=== PATIENT | male | born 1965 | race Two or more races ===

== ENCOUNTER 2017-09-18 13:32 | Inpatient (IN) | payer MEDICAID ==
[~2017-09-18] VITALS: Ht 172.7 cm; Wt 74.7 kg
[2017-09-18 14:04] LABS: Basophils # (auto) 0.1 uL; Basophils % (auto) 0.7 % (0.0-2.0); Eosinophils # (auto) 0.2 uL; Eosinophils % (auto) 1.2 % (0.0-7.0); Hemoglobin 14.4 g/dL (13.5-17.5); Lymphocytes # (auto) 2.6 uL; Lymphocytes % (auto) 12.7 % (10.0-50.0); Mean Corpuscular Hemoglobin 28.3 pg (28.0-32.0); Mean Corpuscular Hgb Conc. 33.6 g/dL (32.0-36.0); Mean Corpuscular Volume 84.2 fL (80.0-100.0); Monocytes # (auto) 1.1 uL; Monocytes % (auto) 5.7 % (0.0-12.0); Neutrophils # (auto) 16.2 uL; Neutrophils % (auto) 79.7 % (37.0-80.0); Platelet Count (auto) 349 10^3/uL (140-450); Red Blood Cells 5.11 10^6/uL (4.5-5.90); Red Cell Distribution Width 13.4 % (11.8-14.3); White Blood Cell 20.3 10^3/uL (4.4-10.8)
[2017-09-18 14:29] LABS: Alanine Aminotransferase 41 U/L (16-61); Albumin 3.1 g/dL (3.4-5.0); Alkaline Phosphatase 78 U/L (45-117); Anion Gap 7 (5-15); Aspartate Aminotransferase 26 U/L (15-37); BUN/Creatinine Ratio 29.7; Bilirubin, Total 0.1 mg/dL (0.2-1.0); Blood Urea Nitrogen 19 mg/dL (7-18); Calcium 8.7 mg/dL (8.5-10.1); Carbon Dioxide 27 mmol/L (21-32); Chloride 104 mmol/L (98-107); GFR African American 168 mL/min; GFR Non-African American 139 mL/min; Glucose 116 mg/dL (74-106); Magnesium 2.5 mg/dL (1.6-2.6); Potassium 3.7 mmol/L (3.5-5.1); Sodium 138 mmol/L (136-145); Total Protein 7.6 g/dL (6.4-8.2)
[2017-09-18] MEDS ORDERED: KETOROLAC TROMETH 30 MG/ML 1ML VIAL IV ONE (19:00)
[2017-09-18] MEDS ORDERED: cefTRIAXone 1GM/10ml IVPUSH 10 ML IV ONE (19:00)
[2017-09-18] MEDS ORDERED: NICOTINE 14 MG/24HR TOPICAL PATCH TD ONE (19:45)
[2017-09-18] MEDS ORDERED: ACETAMINOPHEN 325 MG TAB PO PRN (20:00)
[2017-09-18] MEDS ORDERED: DOCUSATE SOD 100 MG CAP PO PRN (20:00)
[2017-09-18] MEDS ORDERED: ONDANSETRON HCL 4 MG/2 ML VIAL IV PRN (20:00)
[2017-09-18] MEDS ORDERED: TEMAZEPAM 15 MG CAP PO PRN (20:00)
[2017-09-18] MEDS ORDERED: HYDROcodone-ACET 5/325MG TAB PO PRN (20:00)
[2017-09-18] MEDS ORDERED: cloNIDine HCL 0.1 MG TAB PO PRN (20:15)
[2017-09-18 20:25] VITALS: BP 137/91
[2017-09-18 21:30] VITALS: BP 147/103
[2017-09-18] MEDS: SODIUM CHLOR 0.9% PF (SALINE LOCK) 10ML VIAL/SYR IV SCH (22:52)
[2017-09-18] MEDS ORDERED: CEPH500C PO (23:44)
[2017-09-19] MEDS: ALBUTEROL SULF 2.5 MG/0.5ML(0.5%) NEB SOLN NEB SCH ×3 (00:13→11:06)
[2017-09-19] MEDS: IPRATROPIUM BROM 0.5 MG/2.5ML INH SOL NEB SCH ×3 (00:13→11:06)
[2017-09-19] MEDS: MORPHINE SULFATE 8mg/ml INJ SDV IV PRN ×2 (03:39→10:14)
[2017-09-19 04:58] VITALS: BP 150/63
[2017-09-19 05:24] LABS: Urine Bacteria NONE SEEN /hpf (None Seen); Urine Blood 1+ /uL (Negative); Urine Mucus FEW (None Seen); Urine Specific Gravity 1.021 (1.001-1.035); Urine WBC 1 /hpf (0 - 3)
[2017-09-19 05:45] LABS: Alcohol, Urine < 3.0 mg/dL (0-5); Amphetamine Screen, Urine NEGATIVE (NEGATIVE); Barbiturate Scree,Urine NEGATIVE (NEGATIVE); Benzodiazephine Screen, Urine NEGATIVE (NEGATIVE); Cannabinoid Screen, Urine NEGATIVE (NEGATIVE); Cocaine Screen, Urine NEGATIVE (NEGATIVE); Opiate Scree,Urine POSITIVE (NEGATIVE); Phencyclidine Screen, Urine NEGATIVE (NEGATIVE)
[2017-09-19] MEDS: SODIUM CHLOR 0.9% PF (SALINE LOCK) 10ML VIAL/SYR IV SCH (06:45)
[2017-09-19 06:49] LABS: Basophils # (auto) 0 uL; Basophils % (auto) 0.2 % (0.0-2.0); Eosinophils # (auto) 0.2 uL; Eosinophils % (auto) 1.2 % (0.0-7.0); Hematocrit 41.2 % (41.0-53.0); Hemoglobin 14.1 g/dL (13.5-17.5); Lymphocytes # (auto) 2.9 uL; Mean Corpuscular Hgb Conc. 34.3 g/dL (32.0-36.0); Mean Corpuscular Volume 84.4 fL (80.0-100.0); Monocytes # (auto) 1.3 uL; Monocytes % (auto) 7.6 % (0.0-12.0); Neutrophils # (auto) 12.7 uL; Nucleated Red Blood Cells % 0.1 %; Platelet Count (auto) 319 10^3/uL (140-450); Red Blood Cells 4.88 10^6/uL (4.5-5.90); Red Cell Distribution Width 13.7 % (11.8-14.3); White Blood Cell 17.2 10^3/uL (4.4-10.8)
[2017-09-19 07:07] LABS: Albumin 2.9 g/dL (3.4-5.0); Bilirubin, Total 0.3 mg/dL (0.2-1.0); Calcium 8.2 mg/dL (8.5-10.1); Potassium 3.7 mmol/L (3.5-5.1); Total Protein 7.1 g/dL (6.4-8.2)
[2017-09-19 08:00] VITALS: BP 126/100
[2017-09-19 08:59] VITALS: BP 126/100
[2017-09-19] MEDS ORDERED: NICOTINE 14 MG/24HR TOPICAL PATCH TD SCH (10:00)
[2017-09-19] MEDS ORDERED: MULTIPLE VITAMIN TAB PO SCH (10:00)
[2017-09-19] MEDS: BOOST PLUS 8 ounce PO SCH ×2 (10:41→12:00)
[2017-09-19] MEDS ORDERED: LEVO500T21 PO ×2 (10:41)
[2017-09-19] MEDS ORDERED: LEVOFLOXACIN 500 MG TAB PO ONE (11:00)
[2017-09-19 11:58] VITALS: BP 135/93
[2017-09-19 13:25] VITALS: BP 135/93
[2017-09-19] MEDS ORDERED: cefTRIAXone 1GM/10ml IVPUSH 10 ML IV SCH (22:00)
== END 2017-09-19 12:40 | disposition home or self-care (01) | DRG 140 ==
LOC: EDBD 13:32 → ER 13:32 → TELE 13:33 → CENTRAL 20:57
PROVIDERS: ADMIT Internal Medicine; ATTEND Internal Medicine
DX: J44.0 Chronic obstructive pulmonary disease with (acute) lower respiratory infection (principal); E44.0 Moderate protein-calorie malnutrition; J45.901 Unspecified asthma with (acute) exacerbation; E88.09 Other disorders of plasma-protein metabolism, not elsewhere classified; J44.1 Chronic obstructive pulmonary disease with (acute) exacerbation; I10 Essential (primary) hypertension; F17.210 Nicotine dependence, cigarettes, uncomplicated; J20.9 Acute bronchitis, unspecified; R07.81 Pleurodynia; Z68.25 Body mass index [BMI] 25.0-25.9, adult; Z71.6 Tobacco abuse counseling
CPT/HCPCS: 36415; 71046; 80053; 80307; 81001; 83735; 84484; 85025; 87070; 87077; 87186; 87205; 93005; 94640; 94761; 96374; 96375; J1885; J2270

== ENCOUNTER 2017-09-20 00:54 | Emergency (ER) | payer MEDICAID ==
[~2017-09-20] VITALS: Ht 175.3 cm; Wt 74.8 kg
[~2017-09-20 00:54] MED LIST: CEPH500C PO; LEVO500T21 PO
[2017-09-20 01:15] VITALS: BP 140/89
[2017-09-20 01:44] LABS: Basophils # (auto) 0.1 uL; Basophils % (auto) 0.5 % (0.0-2.0); Eosinophils # (auto) 0.1 uL; Eosinophils % (auto) 0.4 % (0.0-7.0); Hematocrit 43.7 % (41.0-53.0); Hemoglobin 14.6 g/dL (13.5-17.5); Lymphocytes # (auto) 2.7 uL; Lymphocytes % (auto) 12.7 % (10.0-50.0); Mean Corpuscular Hemoglobin 28.4 pg (28.0-32.0); Mean Corpuscular Hgb Conc. 33.4 g/dL (32.0-36.0); Mean Corpuscular Volume 85.1 fL (80.0-100.0); Monocytes # (auto) 1.7 uL; Monocytes % (auto) 8.3 % (0.0-12.0); Neutrophils # (auto) 16.3 uL; Neutrophils % (auto) 78.1 % (37.0-80.0); Platelet Count (auto) 358 10^3/uL (140-450); Red Blood Cells 5.14 10^6/uL (4.5-5.90); Red Cell Distribution Width 13.3 % (11.8-14.3); White Blood Cell 20.9 10^3/uL (4.4-10.8)
[2017-09-20 02:03] LABS: Albumin 3.3 g/dL (3.4-5.0); Anion Gap 6 (5-15); Aspartate Aminotransferase 29 U/L (15-37); BUN/Creatinine Ratio 27.7; Blood Urea Nitrogen 23 mg/dL (7-18); Calcium 8.9 mg/dL (8.5-10.1); Carbon Dioxide 29 mmol/L (21-32); Chloride 101 mmol/L (98-107); GFR African American 125 mL/min; GFR Non-African American 103 mL/min; Glucose 113 mg/dL (74-106); Potassium 4.2 mmol/L (3.5-5.1); Sodium 136 mmol/L (136-145)
[2017-09-20 02:10] LABS: Alanine Aminotransferase 37 U/L (16-61); Alkaline Phosphatase 63 U/L (45-117); Bilirubin, Total 0.5 mg/dL (0.2-1.0); Total Protein 8.2 g/dL (6.4-8.2)
== END 2017-09-20 05:51 | disposition left against medical advice (07) ==
LOC: EDBD 00:54 → ER 00:54
DX: R06.02 Shortness of breath (principal); Z53.21 Procedure and treatment not carried out due to patient leaving prior to being seen by health care provider
CPT/HCPCS: 36415; 71045; 80053; 84484; 85025

== ENCOUNTER → 2019-02-28 | Outpatient (CLI) | payer MEDICAID ==
[~2019-02-28] VITALS: Ht 172.7 cm; Wt 75.7 kg
[~2019-02-28] MED LIST changes: +ADENOSINE 64 MG in GIVE UN-DILUTED 0 ML IV ONE; +ADENOSINE 90 MG/30 ML INJ IV ONE; +ALBUTEROL SULF 2.5 MG/0.5ML(0.5%) NEB SOLN ONE; -CEPH500C PO
== END | disposition home or self-care (01) ==
LOC: Rad HDHVI 07:57
PROVIDERS: ATTEND Internal Medicine
DX: R07.9 Chest pain, unspecified (principal); J44.9 Chronic obstructive pulmonary disease, unspecified; E44.0 Moderate protein-calorie malnutrition; I10 Essential (primary) hypertension; J45.909 Unspecified asthma, uncomplicated; Z87.891 Personal history of nicotine dependence
CPT/HCPCS: 78452; 93005; 94640; 96374; 96375; A9500; J0153; J7611

== ENCOUNTER → 2019-03-08 | Outpatient (CLI) | payer MEDICAID ==
[~2019-03-08] MED LIST changes: -ADENOSINE 64 MG in GIVE UN-DILUTED 0 ML IV ONE; -ADENOSINE 90 MG/30 ML INJ IV ONE; -ALBUTEROL SULF 2.5 MG/0.5ML(0.5%) NEB SOLN ONE
== END | disposition home or self-care (01) ==
LOC: Rad HDHVI 11:06
PROVIDERS: ATTEND Internal Medicine
DX: J44.9 Chronic obstructive pulmonary disease, unspecified (principal); I10 Essential (primary) hypertension
CPT/HCPCS: 93306

== ENCOUNTER → 2021-07-11 | Outpatient (CLI) | payer MEDICAID ==
[~2021-07-11] MED LIST changes: +ALBUTEROL SULF 2.5 MG/0.5ML(0.5%) NEB SOLN ONE; -LEVO500T21 PO; +LEVO500T31 PO
== END | disposition home or self-care (01) ==
LOC: RT 08:26
PROVIDERS: ATTEND Internal Medicine Pulmonary Disease
DX: J44.9 Chronic obstructive pulmonary disease, unspecified (principal)
CPT/HCPCS: 36415; 94060; 94618; 94727; 94729

== ENCOUNTER → 2021-12-31 | Outpatient (CLI) | payer MEDICAID ==
[~2021-12-31] MED LIST changes: -ALBUTEROL SULF 2.5 MG/0.5ML(0.5%) NEB SOLN ONE
== END | disposition home or self-care (01) ==
LOC: Rad HDHVI 13:51
PROVIDERS: ATTEND Internal Medicine
DX: I07.1 Rheumatic tricuspid insufficiency (principal); R06.02 Shortness of breath; R07.89 Other chest pain; I10 Essential (primary) hypertension
CPT/HCPCS: 93306

== ENCOUNTER → 2022-02-24 | Outpatient (CLI) | payer MEDICAID ==
[~2022-02-24] VITALS: Ht 172.7 cm; Wt 73.5 kg
[~2022-02-24] MED LIST changes: +ADENOSINE 62 MG in GIVE UN-DILUTED 0 ML IV ONE; +ADENOSINE 90 MG/30 ML INJ IV ONE
== END | disposition home or self-care (01) ==
LOC: Rad HDHVI 13:49
PROVIDERS: ATTEND Internal Medicine
DX: R07.89 Other chest pain (principal); I10 Essential (primary) hypertension; R06.02 Shortness of breath; J44.9 Chronic obstructive pulmonary disease, unspecified; F17.211 Nicotine dependence, cigarettes, in remission; Z82.49 Family history of ischemic heart disease and other diseases of the circulatory system
CPT/HCPCS: 78452; 93005; 96374; 96375; A9500; J0153

== ENCOUNTER 2025-03-05 15:26 | Inpatient (IN) | payer MEDICAID ==
[~2025-03-05] VITALS: Ht 170.2 cm; Wt 74.1 kg
[2025-03-05] MEDS: ENOXAPARIN SOD 80 MG/0.8ML SYRINGE SC SCH (10:46)
[~2025-03-05 15:26] MED LIST changes: -ADENOSINE 62 MG in GIVE UN-DILUTED 0 ML IV ONE; -ADENOSINE 90 MG/30 ML INJ IV ONE
--- NOTE | 2025-03-05 15:42 | ED.PDOC ---
SOB-HPI HPI Comments 59 year old male with PMHx COPD presents to the ED With a chief complaint of shortness of breath Per EMS, patient was recently discharged from [facility], was admitted for Pneumonia. Patient states he noticed shortness of breath has worsened, is worse with exertion. He was 70% on RA, was placed on O2, given breathing treatments in r oute to ED. Denies fever, chills, nausea, vomiting, diarrhea, chest pain, headache, dizziness. No other symptoms or modifying factors present at this time. Chief Complaint: Shortness of Breath Time Seen by MD: 15:30 Primary Care Provider: TOREY Reviewed notes: Medications, Allergies Information Source: Patient, Emergency Med Personnel Mode of Arrival: EMS Severity: Moderate Timing: Hours Duration: Since onset Context: At Rest PE Risk Factors: None History of: COPD Prehospital treatment: Breathing Tx Modifying Factors: Nothing Past Medical History PAST MEDICAL HISTORY: COPD Surgical History: Denies all surgeries Family History Family History: Unknown Social History Smoker: Cigarettes, Greater Than 1 Pack/Day Alcohol: Occasionally Drugs: Denies Drug Use Lives In: Home Constitutional: denies: chills, diaphoresis, fatigue, fever, malaise, sweats, weakness, others EENTM: denies: blurred vision, double vision, ear bleeding, ear discharge, ear drainage, ear pain, ear ringing, eye pain, eye redness, hearing loss, mouth pain, mouth swelling, nasal discharge, nose bleeding, nose congestion, nose pain, photophobia, tearing, throat pain, throat swelling, voice changes, others Respiratory: reports: shortness of breath; denies: cough, hemoptysis, orthopnea, SOB at rest, SOB with excertion, stridor, wheezing, others Cardiovascular: denies: chest pain, dizzy spells, diaphoresis, Dyspnea on exertion, edema, irregular heart beat, left arm pain, lightheadedness, palpitations, PND, syncope, others Gastrointestinal: denies: abdomen distended, abdominal pain, blood streaked bowels, constipated, diarrhea, dysphagia, difficulty swallowing, hematemesis, melena, nausea, poor appetite, poor fluid intake, rectal bleeding, rectal pain, vomiting, others Genitourinary: denies: burning, dysuria, flank pain, frequency, hematuria, incontinence, penile discharge, penile sore, pain, testicle pain, testicle sw elling, urgency, others Neurological: denies: dizziness, fainting, headache, left sided numbness, left sided weakness, numbness, paresthesia, pre-existing deficit, right sided numbness, right sided weakness, seizure, speech problems, tingling, tremors, weakness, others Musculoskeletal: denies: back pain, gout, joint pain, joint swelling, muscle pain, muscle stiffness, neck pain, others Integumetry: denies: bruises, change in color, change in hair/nails, dryness, laceration, lesions, lumps, rash, wounds, others Allergic/Immunocompromised: denies: Difficulty Healing, Frequent Infections, Hives, Itching, others Hematologic/Lymphatic: denies: anemia, blood clots, easy bleeding, easy bruising, swollen glands, others Endocrine: denies: excessive hunger, excessive sweating, excessive thirst, excessive urination, flushing, intolerance to cold, intolerance to heat, unexplained weight gain, unexplained weight loss, others Psychiatric: denies: anxiety, bipolar disorder, depression, hopeless, panic disorder, schizophrenia, sleepless, suicidal, others All Other Systems: Reviewed and Negative Physical Exam General Appearance: No Apparent Distress, Normal HEENT: Normal ENT Inspection, Pharynx Normal, TMs Normal Neck: Full Range of Motion, Non-Tender, Normal, Normal Inspection Respiratory: Wheezing, Other (Tachypnea) Cardiovascular: No Edema, No JVD, No Murmur, No Gallop, Normal Peripheral Pulses, Regular Rate/Rhythm Breast Exam: Deferred Gastrointestinal: No Organomegaly, Non Tender, No Pulsatile Mass, Normal Bowel Sounds, Soft Genitalia: Deferred Pelvic: Deferred Rectal: Deferred Extremities: No calf tenderness, Normal capillary refill, Normal inspection, Normal range of motion, Non-tender, No pedal edema Musculoskeletal : Apperance: Normal Neurologic: Alert, gaming director II-XII nml as Tested, No Motor Deficits, Normal Affect, Normal Mood, No Sensory Deficits Cerebellar Function: Normal Reflexes: Normal Skin: Dry, Normal Color, Warm Lymphatic: No Adenopathy Was a procedure done? Was a procedure done?: No Differential Dx Differential Diagnosis: Bronchitis, COPD, Pneumonia, URI X-Ray, Labs, Meds, VS Vital Signs Date Time Temp Pulse Resp B/P (MAP) Pulse Ox O2 Delivery O2 Flow Rate FiO2 03/05/25 18:17 98.0 104 18 120/80 (93) 96 98.0 03/05/25 16:02 100 03/05/25 15:39 96 Nasal Cannula* 4 36 03/05/25 15:34 98.0 105 18 130/84 96 98.0 Lab Test 03/05/25 16:20 Range/Units White Blood Count 10.3 4.4-10.8 10^3/uL Red Blood Count 5.53 4.5-5.90 10^6/uL Hemoglobin 16.2 13.5-17.5 g/dL Hematocrit 48.2 41.0-53.0 % Mean Corpuscular Volume 87.1 80.0-100.0 fL Mean Corpuscular Hemoglobin 29.4 28.0-32.0 pg Mean Corpuscular Hemoglobin Concent 33.7 32.0-36.0 g/dL Red Cell Distribution Width 13.1 11.8-14.3 % Platelet Count 218 140-450 10^3/uL Mean Platelet Volume 7.3 6.9-10.8 fL Neutrophils (%) (Auto) 66.2 37.0-80.0 % Lymphocytes (%) (Auto) 22.8 10.0-50.0 % Monocytes (%) (Auto) 8.6 0.0-12.0 % Eosinophils (%) (Auto) 2.2 0.0-7.0 % Basophils (%) (Auto) 0.2 0.0-2.0 % Neutrophils # (Auto) 6.8 1.6-8.6 10 ^3/uL Lymphocytes # (Auto) 2.4 0.4-5.4 10 ^3/uL Monocytes # (Auto) 0.9 0-1.3 10 ^3/uL Eosinophils # (Auto) 0.2 0-0.8 10 ^3/uL Basophils # (Auto) 0 0-0.2 10 ^3/uL Nucleated Red Blood Cells 0.1 % Sodium Level Pending Potassium Level Pending Chloride Level Pending Carbon Dioxide Level Pending Anion Gap Pending Blood Urea Nitrogen Pending Creatinine Pending Glomerular Filtration Rate Calc Pending BUN/Creatinine Ratio Pending Serum Glucose Pending Lactic Acid Level Pending Calcium Level Pending Troponin I High Sensitivity Pending Time of 1ST Reevaluation: 16:00 Reevaluation 1ST: Unchanged Patient Education/Counseling: Diagnosis, Treatment, Need For Follow Up Family Education/Counseling: No Family Present SEPSIS Sepsis Screen Physician Orders Electrocardigram (03/05/25 15:40) Basic Metabolic Panel (03/05/25 16:07) Troponin-I Hs (03/05/25 16:07) Urinalysis (03/05/25 16:07) Chest Portable (03/05/25 16:07) Lactic Acid W/ Reflex Order (03/05/25 16:07) Blood Culture (03/05/25 16:07) Troponin-I Hs (03/05/25 17:07) Troponin-I Hs (03/05/25 19:07) Vital Signs Date Time Temp Pulse Resp B/P (MAP) Pulse Ox O2 Delivery O2 Flow Rate FiO2 03/05/25 18:17 98.0 104 18 120/80 (93) 96 98.0 03/05/25 16:02 100 03/05/25 15:39 96 Nasal Cannula* 4 36 03/05/25 15:34 98.0 105 18 130/84 96 98.0 Laboratory Tests Test 03/05/25 16:20 Lactic Acid Level Pending White Blood Count 10.3 10^3/uL (4.4-10.8) Departure 1 Departure Time of Disposition: 18:20 (Patient presented with acute shortness of breath concerning for acute on chronic COPD Exacerbation, Pneumonia, ACS, CHF, Pneumothorax. Less likely PE, Dissection. Data: 1. I ordered and reviewed the result of at least 3 labs including a CBC, BMP, and Troponin. 2. I independently interpreted the following tests: Chest X-ray shows .Risk:This patient has a high risk of morbidity due to further diagnostic testing or treatment and may suffer from respiratory or cardiac etiology . Workup reveals a likely COPD Exacerbation and patient should be admitted for further workup. and possible expert consultation.) Impression: Primary Impression: Acute on chronic hypoxic respiratory failure Additional Impression: Shortness of breath Disposition: ADMITTED INPATIENT Admit to: Tele Condition: Guarded Critical Care Note Critical Care Time?: Yes Critical care comment: Acute respiratory distress Authorized and Performed by: Candelario Banegas MD Total critical care time: Approximately 37 minutes Due to a high probability of clinically significant, life threatening deterioration, the patient required my highest level of preparedness to intervene emergently and I personally spent this critical care time directly and personally managing the patient. This critical care time included obtaining a history; examining the patient; pulse oximetry; ordering and review of studies; arranging urgent treatment with development of a management plan; evaluation of patient's response to treatment; frequent reassessment; and, discussions with other providers. This critical care time was performed to assess and manage the high probability of imminent, life-threatening deterioration that could result in multi-organ failure. It was exclusive of separately billable procedures and treating other patients and teaching time. Please see my other sections and the rest of the note for further information on patient assessment and treatment. Stability Stability form required: No Heart Score Heart Score: Heart Score Response (Comments) Value History N/A 0 EKG N/A 0 Age N/A 0 Risk Factors N/A 0 Troponin N/A 0 Total 0 I personally scribed for CANDELARIO BANEGAS MD ([email or web address]) on 03/05/25 at 15:42. Electronically submitted by Chiquita Hernández ([email or web address]). CANDELARIO BANEGAS MD Mar 05, 2025 15:42
--- NOTE | 2025-03-05 16:42 | DVH ---
CLINICAL HISTORY: ams TECHNIQUE: Single view of the chest was obtained. COMPARISON: None FINDINGS: The heart size and pulmonary vasculature are normal. The lungs are clear. IMPRESSION: NO ACUTE CARDIOPULMONARY PROCESS.
[2025-03-05 17:17] LABS: Hematocrit 48.2 % (41.0-53.0); Hemoglobin 16.2 g/dL (13.5-17.5); Mean Corpuscular Hemoglobin 29.4 pg (28.0-32.0); Mean Corpuscular Volume 87.1 fL (80.0-100.0); Nucleated Red Blood Cells % 0.1 %
[2025-03-05 17:24] LABS: Chloride 99 mmol/L (98-107); Sodium 139 mmol/L (136-145)
[2025-03-05 17:25] LABS: Anion Gap 11 (5-15); Calcium 9.1 mg/dL (8.7-10.4); Carbon Dioxide 29 mmol/L (20-31)
[2025-03-05 17:30] LABS: BUN/Creatinine Ratio 18.1 (10.0-20.0); Blood Urea Nitrogen 15 mg/dL (9-23)
[2025-03-05 18:22] LABS: Glucose 125 mg/dL (74-106); Potassium 3.3 mmol/L (3.5-5.1)
[2025-03-05] MEDS: IPRATROPIUM BROM 0.5 MG/2.5ML INH SOL NEB ONE (18:37)
[2025-03-05] MEDS: ALBUTEROL SULF 2.5 MG/0.5ML(0.5%) NEB SOLN NEB ONE (18:37)
[2025-03-05] MEDS ORDERED: DOCUSATE SOD 100 MG CAP PO PRN (19:15)
[2025-03-05] MEDS ORDERED: NITROGLYCERIN 0.4 MG SL TAB SL PRN (19:15)
[2025-03-05] MEDS ORDERED: ONDANSETRON HCL 4 MG/2 ML VIAL IV PRN (19:15)
--- NOTE | 2025-03-05 19:35 | DVHHPRES ---
History of Present Illness Resident Creating Document: AMADO TOURE RESIDENT History of Present Illness Mr. Castellano, a 59-year-old male with a history of HTN, DMII, HLD, COPD, 2L NC RTC, Generalized Anxiety disorder, nicotine abuse, Insomnia Insomnia BPH, BPH, chronic back pain, osteoarthritis presented to the emergency department with moderate shortness of breath that had worsened over several hours, particularly with exertion. He was recently discharged from [facility] following treatment for pneumonia. Upon EMS arrival, he was found to have an oxygen saturation of 70% on room air and was administered oxygen and breathing treatments en route to the hospital. The patient has associated symptoms such as fever, chills, exertional substernal chest pain radiating to left arm and neck, nausea, or dizziness. He arrived via EMS and was evaluated at 15:30. He is a heavy smoker, occasionally consumes alcohol, denies drug use and surgical history, and lives at home with son. His primary care provider is Dr. Millan. PMHx: HTN, DMII, HLD, COPD, 2L NC RTC, Generalized Anxiety disorder, nicotine abuse, Insomnia Insomnia BPH, BPH, chronic back pain, osteoarthritis. PSHx: Lumbar spinal surgery. Family history: non contributory. Social History: 40+ smoking history, active, occasional alcohol, lifetime denies use of rec drugs, lives at home with son. Review of Systems Constitutional: Yes: Chills, Sweats, Malaise; No: Fever, Weakness, Other Eyes: No: Pain, Vision change, Conjunctivae inflammation, Eyelid inflammation, Other, Redness ENT: No: Ear pain, Ear discharge, Nose pain, Nose discharge, Nose congestion, Mouth pain, Mouth swelling, Throat pain, Throat swelling, Other Respiratory: Cough, Dry, Shortness of breath, SOB with excertion, Sputum; No: Wheezing, Hemoptysis, Pleuritic Pain, Wheezing, Other Cardiovascular: Chest Pain; No: Palpitations, Orthopnea, Paroxysmal Noc. Dyspne a, Edema, Lt Headedness, Other Gastrointestinal: Nausea; No: Vomiting, Abdominal Pain, Diarrhea, Constipation, Melena, Hematochezia, Other Genitourinary: No Dysuria, No Frequency, No Incontinence, No Hematuria; Retention; No Other Musculoskeletal: neck pain, back pain, leg pain, foot pain; No: other, shoulder pain, arm pain, hand pain Skin: No: Rash, Lesions, Jaundice, Bruising, Other Neurological: Numbness (sciatica left LS area, chronic); No: Weakness, Incoordination, Change in speech, Confusion, Seizures, Other Allergies: Coded Allergies: NO KNOWN ALLERGIES (Unverified , 09/20/17) Medications Current Medications Medications Dose Ordered Sig/Rochelle Route Start Time Stop Time Status Last Admin Dose Admin Ondansetron HCl 4 mg Q4HP PRN IV 03/05/25 19:15 UNV Docusate Sodium 100 mg BIDPRN PRN PO 03/05/25 19:15 UNV Morphine Sulfate 2 mg Q4HPRN PRN IV 03/05/25 19:15 UNV Nitroglycerin 0.4 mg Q5MINP PRN SL 03/05/25 19:15 UNV Morphine Sulfate 2 mg Q30M PRN IV 03/05/25 19:15 UNV Enoxaparin Sodium 80 mg Q12HR SC 03/05/25 19:30 UNV Potassium Chloride 100 ml @ 50 mls/hr Q2H IV 03/05/25 19:45 03/05/25 23:44 UNV Exam Vital Signs Vital Signs Date Time Temp Pulse Resp B/P (MAP) Pulse Ox O2 Delivery O2 Flow Rate FiO2 03/05/25 18:17 98.0 104 18 120/80 (93) 96 98.0 03/05/25 15:39 Nasal Cannula* 4 36 General Appearance: Alert, Oriented X3, Cooperative, mild distress HEENT: Atraumatic, PERRLA, EOMI, Other (dry mucosa, neck pain left sternocleidomastoid area. likely muskuloskeletal. ) Respiratory: Clear to auscultation, Other (4 L NC, prolonged expiratory phase. ) Cardiovascular: Regular rate, Normal S1, Normal S2, No murmurs, Other (sinus tachycardia) Abdominal: Normal bowel sounds, Soft, No hepatospenomegaly, No masses, Other (epigastric tenderness. surgical scar in the back lumbar area. ) Extremities: No clubbing, No cyanosis, No edema, Normal pulses, No tenderness/swelling Skin: No rashes, No breakdown, No significant lesion Neuro: Normal gait, Normal speech, Strength at 5/5 X4 ext, Normal tone, Sensation intact, Other (walks slowly to catch breath) Psych/Mental Status: Mental status NL, Other (anxious, fine tremors. ) Labs/Xrays Labs Test 03/05/25 18:25 03/05/25 16:20 Range/Units Troponin I High Sensitivity 1026 *H </=54 ng/L White Blood Count 10.3 4.4-10.8 10^3/uL Red Blood Count 5.53 4.5-5.90 10^6/uL Hemoglobin 16.2 13.5-17.5 g/dL Hematocrit 48.2 41.0-53.0 % Mean Corpuscular Volume 87.1 80.0-100.0 fL Mean Corpuscular Hemoglobin 29.4 28.0-32.0 pg Mean Corpuscular Hemoglobin Concent 33.7 32.0-36.0 g/dL Red Cell Distribution Width 13.1 11.8-14.3 % Platelet Count 218 140-450 10^3/uL Mean Platelet Volume 7.3 6.9-10.8 fL Neutrophils (%) (Auto) 66.2 37.0-80.0 % Lymphocytes (%) (Auto) 22.8 10.0-50.0 % Monocytes (%) (Auto) 8.6 0.0-12.0 % Eosinophils (%) (Auto) 2.2 0.0-7.0 % Basophils (%) (Auto) 0.2 0.0-2.0 % Neutrophils # (Auto) 6.8 1.6-8.6 10 ^3/uL Lymphocytes # (Auto) 2.4 0.4-5.4 10 ^3/uL Monocytes # (Auto) 0.9 0-1.3 10 ^3/uL Eosinophils # (Auto) 0.2 0-0.8 10 ^3/uL Basophils # (Auto) 0 0-0.2 10 ^3/uL Nucleated Red Blood Cells 0.1 % Sodium Level 139 136-145 mmol/L Potassium Level 3.3 L 3.5-5.1 mmol/L Chloride Level 99 98-107 mmol/L Carbon Dioxide Level 29 20-31 mmol/L Anion Gap 11 5-15 Blood Urea Nitrogen 15 9-23 mg/dL Creatinine 0.83 0.700-1.30 mg/dL Glomerular Filtration Rate Calc 100 >90 mL/min BUN/Creatinine Ratio 18.1 10.0-20.0 Serum Glucose 125 H 74-106 mg/dL Lactic Acid Level 1.1 0.4-2.0 mmol/L Calcium Level 9.1 8.7-10.4 mg/dL SEPSIS Sepsis Screen Date sepsis recognized/suspect: Mar 05, 2025 Time Sepsis recognized/suspect: 1536 Recent Procedure: No On Antibiotic Therapy: No Respiratory Rate >20: No Heart Rate >90: Yes Temp<36 C (96.8 F) or >38.3 C: No SBP <90 or MAP <65 mmHG: No New Acute Mental Status Change: No Is the patient on CPAP, BIPAP,: No Physician Orders Electrocardigram (03/05/25 15:40) Urinalysis (03/05/25 16:07) Chest Portable (03/05/25 16:07) Blood Culture (03/05/25 16:07) Troponin-I Hs (03/05/25 19:07) Admit (03/05/25:02) Allergies (03/05/25:) Code Status (03/05/25:) Oxygen Per Hour (03/05/25:02) Ondansetron Hcl (Zofran) (03/05/25 19:15) Docusate Sodium Capsule (Colace Capsule) (03/05/25 19:15) Fall Risk Precautions In Place QSHIFT (03/05/25:02) Complete Blood Count (03/06/25 04:00) Comprehensive Metabolic Panel (03/06/25 04:00) Npo (Nothing By Mouth) Diet (03/06/25 Breakfast) Pt Request For Service (03/05/25:) Echo 2d Mode Cardiac Dop (03/05/25:02) Condition: Critical (03/05/25:02) Morphine Sulfate Injection (03/05/25 19:15) Nitroglycerin Sublingual (Ntrostat Subli (03/05/25:15) Morphine Sulfate Injection (03/05/25:15) Oxygen By Nasal Cannula (03/05/25:02) Stat Ekg For Chest Pain (03/05/25:02) Notify Of Changes From Base (03/05/25:02) Canal Boat Captain For 24 Hours (03/05/25:02) Emergency Dysrhythmia Protocol (03/05/25 19:02) Rhythm Strips Once Every Shift (03/05/25 19:02) Aspirin Tablet (03/05/25 19:15) Atorvastatin (Lipitor) (03/05/25 19:15) *Consult Dr.Mukeshchandra Edmonds (03/05/25 19:20) Echo 2d Mode Cardiac Dop (03/05/25:26) Enoxaparin Sodium (Lovenox) (03/05/25:30) Bilat Lower Dvt (03/05/25:) D-Dimer (03/05/25:) Stat Ekg For Chest Pain (03/05/25:30) Potassium Chl 20meq/100ml (03/05/25 19:45) Respiratory Culture W/ Gs (03/05/25:31) Covid19 Antigen Heydi (03/05/25 ) Rapid Influenza A&B (03/05/25:31) Levalbuterol Hcl (Xopenex Medneb) (03/05/25 19:45) Ipratropium Medneb (Atrovent Medneb) (03/05/25 19:45) Methylprednisolone Sod Succ (Solu Medrol (03/05/25 22:00) Nicotine 7mg/24hr (Nicoderm 7mg/24hr) (03/06/25 10:00) Nicotine 7mg/24hr (Nicoderm 7mg/24hr) (03/05/25 19:45) Prothrombin Time W/ Inr (03/05/25:31) Urinalysis (03/05/25:) Thyroid Stimulating Hormone (03/05/25:31) Vital Signs Date Time Temp Pulse Resp B/P (MAP) Pulse Ox O2 Delivery O2 Flow Rate FiO2 03/05/25 18:17 98.0 104 18 120/80 (93) 96 98.0 03/05/25 16:02 100 03/05/25 15:39 96 Nasal Cannula* 4 36 03/05/25 15:34 98.0 105 18 130/84 96 98.0 Laboratory Tests Test 03/05/25 16:20 Lactic Acid Level 1.1 mmol/L (0.4-2.0) White Blood Count 10.3 10^3/uL (4.4-10.8) Medications Medications Dose Ordered Sig/Rochelle Route Start Time Stop Time Status Last Admin Dose Admin Albuterol 5 mg ONCE ONCE NEB 03/05/25 18:30 03/05/25 18:31 DC 03/05/25 18:37 5 MG Ipratropium Lucas 0.5 mg ONCE ONCE NEB 03/05/25 18:30 03/05/25 18:31 DC 03/05/25 18:37 0.5 MG Assessment/Plan Assessment/Plan #NSTEMI likely type 1: Typical chest pain, troponin 971, 1026, still trending, chest pain, heart score 8 point high score, might need catheterization in this hospitalization, Cardiology consult done, echo, repeat EKG as needed, several risk factors include dyslipidemia, type 2 diabetes mellitus, active smoking. #COPD exacerbation: prolonged history of nicotine abuse, At baseline patient on Trelegy Ellipta with recent hospitalization caused trigger for exacerbation, still not back to baseline , increased cough, shortness of breath and loss of function. Immunized to COVID and influenza, sputum culture, previously MSSA positive. MRSA check, right now patient on levofloxacin, we will continue doxycycline and ceftriaxone for now. #recent Community-acquired pneumonia, Gram-positive / g negatives atypical: Was admitted to hospital status post IV antibiotics now on oral levofloxacin, we will continue with IV ceftriaxone and doxycycline for now. Check for MRSA. #Exertional chest pain: Typical chest pain with substernal, radiation to the left arm neck and face, high-risk of cardiac chest pain. Reproducible, so differentials also include musculoskeletal causes. #Known GERD/PUD: As per patient follows with GI (likely Dr. Pro), at home omeprazole and sucralfate, restarting with IV pantoprazole and sucralfate. #Sinus tachycardia: Could be multifactorial, anxiety, COPD, secondary to medication inhalers, although possibility of PE not totally excluded, D-dimer and DVT bilateral lower leg U/S to check. Keeping the patient on telemetry. #Acute on chronic hypoxic respiratory failure: Baseline as per patient at home has concentrated 2 L baseline oxygen, patient has a limitations to movement, feel short of breath, we will recently patient is needing more oxygen since admission/ discharge from [facility] #mild hypokalemia, 3.3 at presentation: IV replenishment, follow up tomorrow. check for Mg, correct electrolytes. #Active nicotine abuse: 40+ pack-year smoking history, patient is still on cigarettes, 4-5 cigarettes at least per day as per patient. Smoking cessation counseling done bedside for 11 minutes, started the patient on nicotine patch for withdrawals. Previously been tried behavioral and medical quit smoking interventions. #known type 2 diabetes mellitus: At home 500 mg daily metformin check for HbA1c, target 140-180 mg/dl. HbA1C 7-8 #generalized anxiety disorder: Sertraline 50 mg tab daily, continue. #Chronic back pain: cyclobenzaprine hydrochloride 10 mg tab daily, we will continue. PT eval before safe discharge. #Benign Prostatic Hyperplasia: still has symptoms. On tamsulosin 0.4 we will continue , previously bananas finasteride 5 mg daily #Insomnia: Trazodone 100 mg at bedtime for sleep #iron-deficiency anemia, chronic: On ferrous sulfate 325, H&H stable, we will hold in-hospital, can restart outpatient dixon. #essential hypertension: Lopressor 50 mg b.i.d., and hydroxychloroquine Dyazide 25 mg b.i.d. target blood pressure 130/80 as per ACC guidelines. PUD prophylaxis: protonix 40mg DVT prophylaxis: Levonox On therapeutic dose Barriers to discharge: Medical diagnosis and management in progress. Patient lives with son. Independent for ADL with walker/ DME. PT and SW consult as needed. PCP: Dr. Shannon Specialist Relevant To Admission: Given elevated troponin, typical chest pain. Dr. Troy consulted. discussed the case over phone with cardiology team. Ten tative cardiac intervention , Wednesday a.m.. Case discussed with Dr. Dickey. Code Status: Full Code. Discussion needed total 33 minutes bedside. Plan discussed with: Patient My Orders Orders - AMADO TOURE RESIDENT Procedure Category Date Status Time Admit ADMIT 03/05/25 Transmitted 19:02 Allergies ASHA 03/05/25 In Process 19:02 Code Status CODE 03/05/25 Transmitted 19:02 Oxygen Per Hour RT 03/05/25 Transmitted 19:02 Ondansetron Hcl PHA 03/05/25 Logged (Zofran) 19:15 Docusate Sodium PHA 03/05/25 Logged Capsule (Colace 19:15 Fall Risk Precautions ASHA 03/05/[address] 19:02 Complete Blood Count LAB 03/06/25 Verified 04:00 Comprehensive LAB 03/06/25 Verified Metabolic Panel 04:00 Npo (Nothing By DIET 03/06/25 Transmitted Mouth) Diet Breakfast Pt Request For Service PT 03/05/25 Logged 19:02 Echo 2d Mode Cardiac US 03/05/25 Logged DOP 19:02 Condition: Critical [facility] 03/05/25 In Process 19:02 Morphine Sulfate PHA 03/05/25 Logged Injection 19:15 Nitroglycerin PHA 03/05/25 Logged Sublingual (Ntrostat 19:15 Morphine Sulfate PHA 03/05/25 Logged Injection 19:15 Oxygen By Nasal RT 03/05/25 Transmitted Cannula 19:02 Stat Ekg For Chest ASHA 03/05/25 In Process Pain 19:02 Notify Of Changes [facility] 03/05/25 In Process From Base 19:02 Canal Boat Captain For [facility] 03/05/25 In Process 24 Hours 19:02 Emergency Dysrhythmia [facility] 03/05/25 In Process Protocol 19:02 Rhythm Strips Once [facility] 03/05/25 In Process Every Shift 19:02 Aspirin Tablet PHA 03/05/25 Logged 19:15 Atorvastatin (Lipitor) PHA 03/05/25 Logged 19:15 Echo 2d Mode Cardiac US 03/05/25 Logged DOP 19:26 Enoxaparin Sodium PHA 03/05/25 Logged (Lovenox) 19:30 Bilat Lower Dvt US 03/05/25 Logged 19:26 D-Dimer LAB 03/05/25 In Process 19:26 Stat Ekg For Chest [facility] 03/05/25 In Process Pain 19:30 Potassium Chl PHA 03/05/25 Logged 20meq/100ml 19:45 Respiratory Culture GABRIEL 03/05/25 Verified W/ Gs 19:31 Covid19 Antigen Heydi LAB 03/05/25 Verified Rapid Influenza A&B LAB 03/05/25 Verified 19:31 Levalbuterol Hcl PHA 03/05/25 Verified (Xopenex Medneb) 19:45 Ipratropium Medneb PHA 03/05/25 Verified (Atrovent Medneb) 19:45 Methylprednisolone PHA 03/05/25 Verified Sod Succ (Solu Medrol 22:00 Nicotine 7mg/24hr PHA 03/06/25 Verified (Nicoderm 7mg/24hr) 10:00 Nicotine 7mg/24hr PHA 03/05/25 Verified (Nicoderm 7mg/24hr) 19:45 Prothrombin Time W/ LAB 03/05/25 Verified INR 19:31 Urinalysis LAB 03/05/25 Verified 19:31 Thyroid Stimulating LAB 03/05/25 Verified Hormone 19:31 Date of Service: Mar 05, 2025 Billing Provider: LORE DICKEY MD Common Visit Codes: [id number] INP/OBS CARE (HIGH) Secondary Visit Codes: [id number] CARE PLAN 30 MINUTES AMADO TOURE RESIDENT Mar 05, 2025 19:35
[2025-03-05] MEDS: methylPREDNISolone SOD SUCC 125 MG/2 ML VL IV ONE (20:29)
[2025-03-05] MEDS: AZITHROMYCIN 250 MG TAB PO ONE (20:29)
[2025-03-05 20:30] VITALS: RESP 21; O2SAT 92
[2025-03-05 20:36] LABS: INR 1.0 (0.9-1.15); Prothrombin Time 10.6 sec (9.3-11.8)
[2025-03-05 20:37] LABS: Alanine Aminotransferase 29 U/L (7-40); Albumin 4.3 g/dL (3.2-4.8); Alkaline Phosphatase 67 U/L (46-116); Bilirubin, Direct < 0.1 mg/dL (<0.3); Bilirubin, Total 0.3 mg/dL (0.2-1.0); Total Protein 6.9 g/dL (5.7-8.2)
[2025-03-05 20:38] LABS: COVID19 ANTIGEN SOFIA FIA NEGATIVE (NEGATIVE)
[2025-03-05] MEDS ORDERED: MORPHINE SULFATE 4 MG/ML SYR/VIAL IV PRN ×2 (20:45)
[2025-03-05 20:49] LABS: Urine Protein, UAD TRACE (Negative)
[2025-03-05] MEDS: NICOTINE 7MG/24HR TOPICAL PATCH TD ONE (20:59)
[2025-03-05] MEDS: ATORVASTATIN 20 MG TAB PO ONE (21:00)
[2025-03-05 21:01] VITALS: BP 123/90; PULSE 91; PULSE 92; RESP 19; TEMP 98; O2SAT 92
[2025-03-05] MEDS: POTASSIUM CHL 20MEQ/100ML 100 ML IV SCH (21:45)
--- NOTE | 2025-03-05 22:13 | DVH ---
BILATERAL LOWER EXTREMITY VENOUS DUPLEX REASON FOR EXAMINATION: tachycardia with hypoxic respiratory failure. COMPARISON: None TECHNIQUE: Using real-time freeze-frame technique with a high-frequency transducer, multiple longitudinal and transverse sections were obtained. Simultaneous color flow and spectral Doppler imaging was performed. The deep veins from the popliteal fossa to the groin were evaluated. FINDINGS: There is good visualization of the deep venous system with no intraluminal filling defects identified. Normal venous compressibility is seen and there is flow augmentation. Color flow Doppler imaging is unremarkable. IMPRESSION: NO EVIDENCE OF DEEP VENOUS THROMBOSIS.
[2025-03-05 22:31] VITALS: BP 123/90; PULSE 88; RESP 18; TEMP 98; O2SAT 92
[2025-03-05] MEDS: PANTOPRAZOLE 40 MG/10 ML VIAL INJ IV ONE (22:42)
[2025-03-05] MEDS: CYCLOBENZAPRINE HCL 10 MG TAB PO SCH (22:45)
[2025-03-05] MEDS: SUCRALFATE 1 GM/10 ML ORAL SUSP GT SCH (22:46)
[2025-03-05] MEDS: methylPREDNISolone SOD SUCC 40 MG/ML VL IV SCH (22:51)
[2025-03-05] MEDS: DOXYCYCLINE 100MG/100ML 100 ML IV SCH (23:00)
[2025-03-06] VITALS (11 sets, daily range): BP systolic 107–122; BP diastolic 74–86; PULSE 84–114; RESP 17–19; TEMP 97.7–98.1; O2SAT 91–100
--- NOTE | 2025-03-06 00:14 | DVHINCON2 ---
Date of service: Mar 05, 2025 Referring Physician Keli Reason for Consultation NSTEMI History of Present Illness This is a 59 year old male with a PMH of COPD who presents to the ED by EMS with a complaint of shortness of breath. The patient was recently discharged from [facility], was admitted for Pneumonia. Patient states he noticed shortness of breath has worsened, is worse with exertion. He was 70% on RA, was placed on O2, given breathing treatments in route to ED. CBC is unremarkable. Troponin 971 > 1026 > 942. Chest x-ray shows NAD. BLE Venous Duplex is negative for DVT. EKG shows tachycardia. Patient was admitted to the hospital. I am asked to consult on this patient. Family History: Asthma G8 MOTHER Allergies: Coded Allergies: NO KNOWN ALLERGIES (Unverified , 09/20/17) Home Meds Active Scripts Levofloxacin (Levaquin) 500 Mg Tab, 500 MG PO DAILY for 7 Days Prov:JEANIE POLLARD MD 09/19/17 Current Medications Current Medications Medications (Trade) Dose Ordered Sig/Rochelle Route PRN Reason Start Time Stop Time Status Last Admin Ondansetron HCl (Zofran) 4 mg Q4HP PRN IV NAUSEA / VOMITING 03/05/25 19:15 Docusate Sodium (Colace Capsule) 100 mg BIDPRN PRN PO FOR CONSTIPATION 03/05/25 19:15 Morphine Sulfate 2 mg Q4HPRN PRN IV SEVERE PAIN (7-10 PAIN SCALE) 03/05/25 20:45 Nitroglycerin (Ntrostat Sublingual) 0.4 mg Q5MINP PRN SL FOR CHEST PAIN 03/05/25 19:15 Morphine Sulfate 2 mg Q30M PRN IV FOR CHEST PAIN 03/05/25 20:45 Enoxaparin Sodium (Lovenox) 80 mg Q12HR SC 03/05/25 21:25 03/05/25 10:46 Potassium Chloride 100 ml @ 50 mls/hr Q2H IV 03/05/25 19:45 03/05/25 23:44 DC Levalbuterol HCl (Xopenex Medneb) 0.625 mg Q6HPRN PRN NEB SHORTNESS OF BREATH 03/05/25 19:45 Ipratropium [place] (Atrovent Medneb) 0.5 mg Q6HPRN PRN NEB SHORTNESS OF BREATH 03/05/25 19:45 Methylprednisolone Sodium Succinate (Solu Medrol) 40 mg BID IV 03/05/25 22:00 03/05/25 22:51 Nicotine (Nicoderm 7MG/ 24HR) 1 patch DAILY TD 03/06/25 10:00 Pantoprazole Sodium (Protonix) 40 mg DAILY IV 03/06/25 10:00 Sucralfate (Carafate Susp) 1 gm BID@0600,2200 GT 03/05/25 22:00 03/05/25 22:46 Ceftriaxone Sodium 50 ml @ 100 mls/hr DAILY@09 IV 03/06/25 09:00 Doxycycline Hyclate 100 ml @ 50 mls/hr Q12H IV 03/05/25 19:45 Atorvastatin Calcium (Lipitor) 40 mg HS PO 03/06/25 22:00 Aspirin 81 mg DAILY PO 03/06/25 10:00 Trazodone HCl (Desyrel) 100 mg HS PO 03/05/25 22:00 03/05/25 22:44 Tamsulosin HCl (Flomax) 0.4 mg QPM PO 03/06/25 18:00 Cyclobenzaprine HCl (Flexeril Tablet) 5 mg TID PO 03/05/25 22:00 03/05/25 22:45 Sertraline HCl (Zoloft) 50 mg DAILY PO 03/06/25 10:00 Review of Systems Constitutional: Yes: Chills, Sweats, Malaise; No: Fever, Weakness, Other Eyes: No: Pain, Vision change, Conjunctivae inflammation, Eyelid inflammation, Other, Redness ENT: No: Ear pain, Ear discharge, Nose pain, Nose discharge, Nose congestion, Mouth pain, Mouth swelling, Throat pain, Throat swelling, Other Respiratory: Cough, Dry, Shortness of breath, SOB with excertion, Sputum; No: Wheezing, Hemoptysis, Pleuritic Pain, Wheezing, Other Cardiovascular: Chest Pain; No: Palpitations, Orthopnea, Paroxysmal Noc. Dyspnea, Edema, Lt Headedness, Other Gastrointestinal: Nausea; No: Vomiting, Abdominal Pain, Diarrhea, Constipation, Melena, Hematochezia, Other Genitourinary: No Dysuria, No Frequency, No Incontinence, No Hematuria; Retention; No Other Musculoskeletal: neck pain, back pain, leg pain, foot pain; No: other, shoulder pain, arm pain, hand pain Skin: No: Rash, Lesions, Jaundice, Bruising, Other Neurological: Numbness (sciatica left LS area, chronic); No: Weakness, Incoordination, Change in speech, Confusion, Seizures, Other Allergies: Vital Signs Vital Signs Date Time Temp Pulse Resp B/P (MAP) Pulse Ox O2 Delivery O2 Flow Rate FiO2 03/05/25 22:31 98.0 88 18 123/90 92 2.0 98.0 03/05/25 20:30 Nasal Cannula* 28 Physical Exam GENERAL: Alert and oriented x 3. No acute distress. EYES: PERRL, EOMI. Anicteric. HENT: Moist mucous membranes. LUNGS: Decreased breath sounds. CARDIOVASCULAR: Regular rate and rhythm. ABDOMEN: Soft, epigastric tenderness. EXTREMITIES: No edema. NEUROLOGIC: No focal neurological deficits. SKIN: Warm, dry. Labs/Diagnostic Data Labs Test 03/05/25 20:20 03/05/25 20:11 03/05/25 20:04 03/05/25 18:25 Range/Units Urine Color Yellow Yellow Urine Clarity Clear Clear Urine pH 6.5 5.0-9.0 Urine Specific [place] 1.025 1.001-1.035 Urine Protein Trace H Negative Urine Ketones Negative Negative Urine Blood Negative Negative /uL Urine Nitrite Negative Negative Urine Bilirubin Negative Negative Urine Urobilinogen Normal Negative mg/dL Urine Leukocyte Esterase Negative Negative /uL Urine RBC 3 0 - 3 /hpf Urine Microscopic WBC < 1 0-3 /HPF Urine Squamous Epithelial Cells Few <5 /hpf Urine Bacteria Few H None Seen /hpf Urine Glucose Normal Normal mg/dL Troponin I High Sensitivity 942 *H </=54 ng/L Influenza Type A Antigen Negative Negative Influenza Type B Antigen Negative Negative SARS-CoV-2 Antigen (Rapid) Negative NEGATIVE Total Bilirubin 0.3 0.2-1.0 mg/dL Direct Bilirubin < 0.1 <0.3 mg/dL Aspartate Amino Transferase (AST) 26 13-40 U/L Alanine Aminotransferase (ALT) 29 7-40 U/L Alkaline Phosphatase 67 46-116 U/L Total Protein 6.9 5.7-8.2 g/dL Albumin 4.3 3.2-4.8 g/dL Thyroid Stimulating Hormone (TSH) 1.34 0.55-4.78 uIU/mL Test 03/05/25 16:20 Range/Units White Blood Count 10.3 4.4-10.8 10^3/uL Red Blood Count 5.53 4.5-5.90 10^6/uL Hemoglobin 16.2 13.5-17.5 g/dL Hematocrit 48.2 41.0-53.0 % Mean Corpuscular Volume 87.1 80.0-100.0 fL Mean Corpuscular Hemoglobin 29.4 28.0-32.0 pg Mean Corpuscular Hemoglobin Concent 33.7 32.0-36.0 g/dL Red Cell Distribution Width 13.1 11.8-14.3 % Platelet Count 218 140-450 10^3/uL Mean Platelet Volume 7.3 6.9-10.8 fL Neutrophils (%) (Auto) 66.2 37.0-80.0 % Lymphocytes (%) (Auto) 22.8 10.0-50.0 % Monocytes (%) (Auto) 8.6 0.0-12.0 % Eosinophils (%) (Auto) 2.2 0.0-7.0 % Basophils (%) (Auto) 0.2 0.0-2.0 % Neutrophils # (Auto) 6.8 1.6-8.6 10 ^3/uL Lymphocytes # (Auto) 2.4 0.4-5.4 10 ^3/uL Monocytes # (Auto) 0.9 0-1.3 10 ^3/uL Eosinophils # (Auto) 0.2 0-0.8 10 ^3/uL Basophils # (Auto) 0 0-0.2 10 ^3/uL Nucleated Red Blood Cells 0.1 % Prothrombin Time 10.6 9.3-11.8 sec Prothrombin Time INR 1.00 0.9-1.15 D-Dimer, Quantitative 0.27 0.0-0.49 mg/L FEU Sodium Level 139 136-145 mmol/L Potassium Level 3.3 L 3.5-5.1 mmol/L Chloride Level 99 98-107 mmol/L Carbon Dioxide Level 29 20-31 mmol/L Anion Gap 11 5-15 Blood Urea Nitrogen 15 9-23 mg/dL Creatinine 0.83 0.700-1.30 mg/dL Glomerular Filtration Rate Calc 100 >90 mL/min BUN/Creatinine Ratio 18.1 10.0-20.0 Serum Glucose 125 H 74-106 mg/dL Hemoglobin A1c 5.8 H <5.7 % A1C Lactic Acid Level 1.1 0.4-2.0 mmol/L Calcium Level 9.1 8.7-10.4 mg/dL Assessment NSTEMI. COPD exacerbation. Recent Community-acquired pneumonia. Exertional chest pain. Sinus tachycardia. Acute on chronic hypoxic respiratory failure. Hypokalemia. Active nicotine abuse. Type 2 diabetes mellitus. Generalized anxiety disorder. Chronic back pain.3 Benign Prostatic Hyperplasia. Insomnia. Iron-deficiency anemia, chronic. Essential hypertension. Plan/Recommendation I agree with your ongoing assessment and care of plan. Echocardiogram. Aspirin, Lipitor. IV antibiotics as ordered. DVT and GI prophylactics. Morphine for pain management. Additional plan as per the hospital course. A total of 45 minutes was spent reviewing the patient record, examining the patient, making a diagnostic and therapeutic plan, discussing this plan with medical personnel, following up on diagnostic studies and following the patient for clinical stability excluding any and all procedures. At least 50% of this time was spent in direct, [id number] contact. Plan discussed with: Patient TAYLER DE PAZ MD Mar 06, 2025 00:14
[2025-03-06] MEDS ORDERED: ASPI-543 PO (06:11)
[2025-03-06] MEDS ORDERED: LEVO750T40 PO (06:18)
[2025-03-06] MEDS ORDERED: SUCR1TAB PO (06:18)
[2025-03-06] MEDS ORDERED: FLUT1AER17 IN (06:18)
[2025-03-06] MEDS ORDERED: METH-1182 PO (06:18)
[2025-03-06] MEDS ORDERED: PANT40TA2 PO (06:18)
[2025-03-06] MEDS ORDERED: FERR325T20 PO (06:18)
[2025-03-06] MEDS ORDERED: ATOR-507 PO (06:18)
[2025-03-06] MEDS ORDERED: CHOL20007 PO (06:18)
--- NOTE | 2025-03-06 06:31 | ECG ---
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
[2025-03-06 08:27] LABS: Hematocrit 46.3 % (41.0-53.0); Hemoglobin 15.5 g/dL (13.5-17.5); Mean Corpuscular Hemoglobin 29.4 pg (28.0-32.0); Mean Corpuscular Volume 87.5 fL (80.0-100.0); Nucleated Red Blood Cells % 0.0 %
[2025-03-06 08:54] LABS: Alanine Aminotransferase 22 U/L (7-40); Alkaline Phosphatase 48 U/L (46-116); Anion Gap 8 (5-15); Calcium 8.9 mg/dL (8.7-10.4); Carbon Dioxide 29 mmol/L (20-31); Chloride 105 mmol/L (98-107); Potassium 4.2 mmol/L (3.5-5.1); Sodium 142 mmol/L (136-145)
[2025-03-06 08:55] LABS: BUN/Creatinine Ratio 27.6 (10.0-20.0); Blood Urea Nitrogen 21 mg/dL (9-23)
[2025-03-06 08:56] LABS: Total Protein 6.5 g/dL (5.7-8.2)
[2025-03-06 08:57] LABS: Albumin 3.9 g/dL (3.2-4.8)
[2025-03-06 08:58] LABS: Bilirubin, Total 0.4 mg/dL (0.2-1.0); Glucose 139 mg/dL (74-106)
[2025-03-06 09:31] LABS: Triglycerides 70 mg/dL (< 150)
[2025-03-06 09:32] LABS: HDL Cholesterol 43 mg/dL (40-59)
[2025-03-06 09:33] LABS: Cholesterol 165 mg/dL (< 200)
--- NOTE | 2025-03-06 10:25 | DVH ---
INDICATION: neck pain, muskuloskeletal COMPARISON: None TECHNIQUE: 4 views of the cervical spine were obtained. FINDINGS: Mild anterolisthesis of C2 on C3 and C3 on C4. Straightening of the cervical spine. The predental space is normal. Severe multilevel degenerative disc disease of the cervical spine No acute fracture, vertebral compression deformity or aggressive osseous lesions. The imaged lung apices are unremarkable. IMPRESSION: No acute fracture. Severe multilevel degenerative disc disease of the cervical spine
[2025-03-06] MEDS: PANTOPRAZOLE 40 MG/10 ML VIAL INJ IV SCH (11:53)
[2025-03-06] MEDS: SERTRALINE HCL 50 MG TAB PO SCH (11:53)
[2025-03-06] MEDS: ENOXAPARIN SOD 80 MG/0.8ML SYRINGE SC SCH (11:54)
[2025-03-06] MEDS: NICOTINE 7MG/24HR TOPICAL PATCH TD SCH (11:57)
--- NOTE | 2025-03-06 12:10 | DVHPN2 ---
Reviewed: Care Plan, H&P, Labs, Medications, Previous Orders, Radiology Changes from previous H/P or p: No Changes Eyes: No Pain, No Vision change, No Conjunctivae inflammation, No Eyelid inflammation, No Other, No Redness ENT: No Ear pain, No Ear discharge, No Nose pain, No Nose discharge, No Nose congestion, No Mouth pain, No Mouth swelling, No Throat pain, No Throat swelling, No Other Cardiovascular: Chest Pain; No Palpitations, No Orthopnea, No Paroxysmal Noc. Dyspnea, No Edema, No Lt Headedness, No Other Respiratory: Cough, Dry, Shortness of breath, SOB with excertion; No Wheezing, No Hemoptysis, No Pleuritic Pain; Sputum; No Other Gastrointestinal: Nausea; No Vomiting, No Abdominal Pain, No Diarrhea, No Constipation, No Melena, No Hematochezia, No Other Genitourinary: No Dysuria, No Frequency, No Incontinence, No Hematuria; R etention; No Other Musculoskeletal: No other; neck pain; No shoulder pain, No arm pain; back pain; No hand pain; leg pain, foot pain Skin: No Rash, No Lesions, No Jaundice, No Bruising, No Other Objective Vitals Vital Signs Date Time Temp Pulse Resp B/P (MAP) Pulse Ox O2 Delivery O2 Flow Rate FiO2 03/06/25 09:00 97.7 84 18 110/77 (88) 93 97.7 03/05/25 22:31 2.0 03/05/25 21:01 Nasal Cannula* 28 Intake/Output Intake and Output 03/06/25 07:00 Intake Total 100 ml Balance 100 ml Intake Oral 0 ml IV Total 100 ml # Voids 2 Medications Current Medications Medications Dose Ordered Sig/Rochelle Route Start Time Stop Time Status Last Admin Dose Admin Ondansetron HCl 4 mg Q4HP PRN IV 03/05/25 19:15 Docusate Sodium 100 mg BIDPRN PRN PO 03/05/25 19:15 Morphine Sulfate 2 mg Q4HPRN PRN IV 03/05/25 20:45 Nitroglycerin 0.4 mg Q5MINP PRN SL 03/05/25 19:15 Morphine Sulfate 2 mg Q30M PRN IV 03/05/25 20:45 Levalbuterol HCl 0.625 mg Q6HPRN PRN NEB 03/05/25 19:45 Ipratropium [place] 0.5 mg Q6HPRN PRN NEB 03/05/25 19:45 Methylprednisolone Sodium Succinate 40 mg BID IV 03/05/25 22:00 03/06/25 11:53 40 MG Nicotine 1 patch DAILY TD 03/06/25 10:00 03/06/25 11:57 1 PATCH Pantoprazole Sodium 40 mg DAILY IV 03/06/25 10:00 03/06/25 11:53 40 MG Sucralfate 1 gm BID@0600,2200 GT 03/05/25 22:00 03/05/25 22:46 1 GM Ceftriaxone Sodium 50 ml @ 100 mls/hr DAILY@09 IV 03/06/25 09:00 03/06/25 11:52 100 MLS/HR Doxycycline Hyclate 100 ml @ 50 mls/hr Q12H IV 03/05/25 19:45 03/06/25 08:36 50 MLS/HR Atorvastatin Calcium 40 mg HS PO 03/06/25 22:00 Aspirin 81 mg DAILY PO 03/06/25 10:00 03/06/25 11:54 81 MG Trazodone HCl 100 mg HS PO 03/05/25 22:00 03/05/25 22:44 100 MG Tamsulosin HCl 0.4 mg QPM PO 03/06/25 18:00 Cyclobenzaprine HCl 5 mg TID PO 03/05/25 22:00 03/05/25 22:45 5 MG Sertraline HCl 50 mg DAILY PO 03/06/25 10:00 03/06/25 11:53 50 MG Enoxaparin Sodium 70 mg Q12HR SC 03/06/25 10:00 03/06/25 11:54 70 MG Laboratory Results Laboratory Tests 03/06/25 08:14 Chemistry Test 03/05/25 16:20 03/05/25 18:25 03/06/25 08:14 Calcium Level 9.1 mg/dL (8.7-10.4) 8.9 mg/dL (8.7-10.4) Albumin 4.3 g/dL (3.2-4.8) 3.9 g/dL (3.2-4.8) Total Protein 6.9 g/dL (5.7-8.2) 6.5 g/dL (5.7-8.2) Coagulation Test 03/05/25 16:20 Prothrombin Time 10.6 sec (9.3-11.8) Prothrombin Time INR 1.00 (0.9-1.15) D-Dimer, Quantitative 0.27 mg/L FEU (0.0-0.49) Lipid panel Test 03/06/25 08:14 Cholesterol Level 165 mg/dL (< 200) HDL Cholesterol 43 mg/dL (40-59) Triglycerides Level 70 mg/dL (< 150) LFT Test 03/05/25 18:25 03/06/25 08:14 Alanine Aminotransferase (ALT) 29 U/L (7-40) 22 U/L (7-40) Alkaline Phosphatase 67 U/L (46-116) 48 U/L (46-116) Aspartate Amino Transferase (AST) 26 U/L (13-40) 22 U/L (13-40) Direct Bilirubin < 0.1 mg/dL (<0.3) Total Bilirubin 0.3 mg/dL (0.2-1.0) 0.4 mg/dL (0.2-1.0) HgA1c, TSH Test 03/05/25 16:20 03/05/25 18:25 Hemoglobin A1c 5.8 % A1C (<5.7) H Thyroid Stimulating Hormone (TSH) 1.34 uIU/mL (0.55-4.78) Urinalysis Test 03/05/25 20:20 Urine Color Yellow (Yellow) Urine Clarity Clear (Clear) Urine pH 6.5 (5.0-9.0) Urine Specific [place] 1.025 (1.001-1.035) Urine Protein Trace (Negative) H Urine Ketones Negative (Negative) Urine Blood Negative /uL (Negative) Urine Nitrite Negative (Negative) Urine Bilirubin Negative (Negative) Urine Urobilinogen Normal mg/dL (Negative) Urine Leukocyte Esterase Negative /uL (Negative) Urine RBC 3 /hpf (0 - 3) Urine Microscopic WBC < 1 /HPF (0-3) Urine Squamous Epithelial Cells Few /hpf (<5) Urine Bacteria Few /hpf (None Seen) H Urine Glucose Normal mg/dL (Normal) Labs and/or images reviewed: Labs reviewed by me, Image(s) reviewed by me Assessment/Plan Assessment/Plan Non ST-elevation [place] troponin 1016: Treatment per ACS protocol cardiology consult for Dr. Troy Acute COPD exacerbation Recent community-acquired pneumonia treated with the IV antibiotics at [facility] and now on p.o. levofloxacin, we will put him on doxycycline and iv Rocephin Exertional chest pain Sinus tachycardia Acute on chronic hypoxic respiratory failure Chronic current smoker: Counseling Type 2 diabetes Generalized anxiety disorder BPH Chronic back pain Insomnia Iron-deficiency anemia Hypertension Time spent 70 minutes Advanced care planning time 20 minutes Patient is full code code Plan discussed with: Patient My Orders Orders - DEX GRIFFITH MD Procedure Category Date Status Time *Consult CONS 03/06/[address]Mukeshchandra Edmonds 12:03 Date of Service: Mar 06, 2025 Billing Provider: DEX GRIFFITH MD Common Visit Codes: [id number] CARE 30-74 MIN DEX GRIFFITH MD Mar 06, 2025 12:10
--- NOTE | 2025-03-06 13:39 | DVHPN2 ---
Progress Note Date Seen: Mar 06, 2025 Resident Creating Document: DONOVAN PULIDO RESIDENT Medical Necessity Reason Pt with a Central, PICC or Fol: No Subjective Review of Systems Mr. Castellano, a 59-year-old male with a history of HTN, DMII, HLD, COPD, 2L NC RTC, Generalized Anxiety disorder, nicotine abuse, Insomnia Insomnia BPH, BPH, chronic back pain, osteoarthritis presented to the emergency department with moderate shortness of breath that had worsened over several hours, particularly with exertion. He was recently discharged from [facility] following treatment for pneumonia. Upon EMS arrival, he was found to have an oxygen saturation of 70% on room air and was administered oxygen and breathing treatments en route to the hospital. The patient has associated symptoms such as fever, chills, exertional substernal chest pain radiating to left arm and neck, nausea, or dizziness. He arrived via EMS and was evaluated at 15:30. He is a heavy smoker, occasionally consumes alcohol, denies drug use and surgical history, and lives at home with son. His primary care provider is Dr. Millan. PMHx: HTN, DMII, HLD, COPD, 2L NC RTC, Generalized Anxiety disorder, nicotine abuse, Insomnia Insomnia BPH, BPH, chronic back pain, osteoarthritis. PSHx: Lumbar spinal surgery. Family history: non contributory. Social History: 40+ smoking history, active, occasional alcohol, lifetime denies use of rec drugs, lives at home with son. Objective vital signs Vital Sign Date Time Temp Pulse Resp B/P (MAP) Pulse Ox O2 Delivery O2 Flow Rate FiO2 03/06/25 09:00 97.7 84 18 110/77 (88) 93 97.7 03/05/25 22:31 2.0 03/05/25 21:01 Nasal Cannula* 28 Total Intake and Output 03/05/25 03/05/25 03/06/25 15:00 23:00 07:00 Intake Total 100 ml Balance 100 ml medications Current Medications Medications Dose Ordered Sig/Rochelle Route Start Time Stop Time Status Last Admin Dose Admin Ondansetron HCl 4 mg Q4HP PRN IV 03/05/25 19:15 Docusate Sodium 100 mg BIDPRN PRN PO 03/05/25 19:15 Morphine Sulfate 2 mg Q4HPRN PRN IV 03/05/25 20:45 Nitroglycerin 0.4 mg Q5MINP PRN SL 03/05/25 19:15 Morphine Sulfate 2 mg Q30M PRN IV 03/05/25 20:45 Levalbuterol HCl 0.625 mg Q6HPRN PRN NEB 03/05/25 19:45 Ipratropium [place] 0.5 mg Q6HPRN PRN NEB 03/05/25 19:45 Methylprednisolone Sodium Succinate 40 mg BID IV 03/05/25 22:00 03/06/25 11:53 40 MG Nicotine 1 patch DAILY TD 03/06/25 10:00 03/06/25 11:57 1 PATCH Pantoprazole Sodium 40 mg DAILY IV 03/06/25 10:00 03/06/25 11:53 40 MG Sucralfate 1 gm BID@0600,2200 GT 03/05/25 22:00 03/05/25 22:46 1 GM Ceftriaxone Sodium 50 ml @ 100 mls/hr DAILY@09 IV 03/06/25 09:00 03/06/25 11:52 100 MLS/HR Doxycycline Hyclate 100 ml @ 50 mls/hr Q12H IV 03/05/25 19:45 03/06/25 08:36 50 MLS/HR Atorvastatin Calcium 40 mg HS PO 03/06/25 22:00 Aspirin 81 mg DAILY PO 03/06/25 10:00 03/06/25 11:54 81 MG Trazodone HCl 100 mg HS PO 03/05/25 22:00 03/05/25 22:44 100 MG Tamsulosin HCl 0.4 mg QPM PO 03/06/25 18:00 Cyclobenzaprine HCl 5 mg TID PO 03/05/25 22:00 03/05/25 22:45 5 MG Sertraline HCl 50 mg DAILY PO 03/06/25 10:00 03/06/25 11:53 50 MG Enoxaparin Sodium 70 mg Q12HR SC 03/06/25 10:00 03/06/25 11:54 70 MG Examination GEN: Healthy appearing, well-developed, NAD. PSYCH: Good Judgment. AOx3. Normal memory, mood, and affect. CV: RRR, no m/r/g. LUNGS: Decreased breath sounds, on nc 2L ABD: Soft, ND/NT. No evidence of fluid wave. No pulsatile masses on exam, rebound tenderness, Dumont sign or pain over Mcburney's point. : N/A SKIN: Warm, well perfused. No skin rashes or abnormal lesions. laboratory and microbiology Laboratory Tests 03/06/25 08:14 Test 03/06/25 08:14 Range/Units Serum Glucose 139 H 74-106 mg/dL Microbiology Date/Time Source Procedure Growth Status 03/05/25 23:50 Nose MRSA Screen - Final Complete Labs and/or images reviewed: Labs reviewed by me, Image(s) reviewed by me Problem List/Assessment/Plan Problem List/Assessment/Plan Acute chest pain secondary to NSTEMI likely type 1 Hypertension Likely acute COPD exacerbation Community-acquired pneumonia, Gram-positive and negative Nicotine dependence Diabetes mellitus type 2-controlled Hypokalemia Plan/Recommendation-Dr. Troy Given the elevated troponins, heart score 8, risk factors, patient will be scheduled for left heart catheterization on 03/07 at 7:30 a.m. in the morning. Continue aspirin 81 mg daily Hold Lovenox on the day of the procedure Continue strict I&Os, cardiac diet NPO after midnight Rest of management by primary care Maintain electrolytes come greater than 4, Mag greater than 2 Plan discussed with patient in which all questions have been answered Case discussed with Dr. Troy Plan discussed with: Patient Visit Coding Cardiology RES Date of Service: Mar 06, 2025 Billing Provider: JOSE F SOMMER Sr., MD Cardiology Common Codes: [id number] [facility]DONOVAN Auguste RESIDENT Mar 06, 2025 13:39
--- NOTE | 2025-03-06 17:25 | DVHPN2 ---
Progress Note - Dictate Date Seen: Mar 06, 2025 Medical Necessity Reason Pt with a Central, PICC or Fol: No Subjective Patient was seen and evaluated in follow up. Patient is c/o short of breath. He is on 2 LPM NC. C-spine x-ray shows no acute fracture. There is severe multilevel degenerative disc disease of the cervical spine. Telemetry reviewed. vital signs Vital Sign Date Time Temp Pulse Resp B/P (MAP) Pulse Ox O2 Delivery O2 Flow Rate FiO2 03/06/25 09:00 97.7 84 18 110/77 (88) 93 97.7 03/05/25 22:31 2.0 03/05/25 21:01 Nasal Cannula* 28 Total Intake and Output 03/05/25 03/05/25 03/06/25 15:00 23:00 07:00 Intake Total 100 ml Balance 100 ml medications Current Medications Medications Dose Ordered Sig/Rochelle Route Start Time Stop Time Status Last Admin Dose Admin Ondansetron HCl 4 mg Q4HP PRN IV 03/05/25 19:15 Docusate Sodium 100 mg BIDPRN PRN PO 03/05/25 19:15 Morphine Sulfate 2 mg Q4HPRN PRN IV 03/05/25 20:45 Nitroglycerin 0.4 mg Q5MINP PRN SL 03/05/25 19:15 Morphine Sulfate 2 mg Q30M PRN IV 03/05/25 20:45 Levalbuterol HCl 0.625 mg Q6HPRN PRN NEB 03/05/25 19:45 Ipratropium [place] 0.5 mg Q6HPRN PRN NEB 03/05/25 19:45 Methylprednisolone Sodium Succinate 40 mg BID IV 03/05/25 22:00 03/06/25 11:53 40 MG Nicotine 1 patch DAILY TD 03/06/25 10:00 03/06/25 11:57 1 PATCH Pantoprazole Sodium 40 mg DAILY IV 03/06/25 10:00 03/06/25 11:53 40 MG Sucralfate 1 gm BID@0600,2200 GT 03/05/25 22:00 03/05/25 22:46 1 GM Ceftriaxone Sodium 50 ml @ 100 mls/hr DAILY@09 IV 03/06/25 09:00 03/06/25 11:52 100 MLS/HR Doxycycline Hyclate 100 ml @ 50 mls/hr Q12H IV 03/05/25 19:45 03/06/25 08:36 50 MLS/HR Atorvastatin Calcium 40 mg HS PO 03/06/25 22:00 Aspirin 81 mg DAILY PO 03/06/25 10:00 03/06/25 11:54 81 MG Trazodone HCl 100 mg HS PO 03/05/25 22:00 03/05/25 22:44 100 MG Tamsulosin HCl 0.4 mg QPM PO 03/06/25 18:00 Cyclobenzaprine HCl 5 mg TID PO 03/05/25 22:00 03/05/25 22:45 5 MG Sertraline HCl 50 mg DAILY PO 03/06/25 10:00 03/06/25 11:53 50 MG Enoxaparin Sodium 70 mg Q12HR SC 03/06/25 10:00 03/06/25 11:54 70 MG objective GENERAL: Alert and oriented x 3. No acute distress. EYES: PERRL, EOMI. Anicteric. HENT: Moist mucous membranes. LUNGS: Decreased breath sounds. CARDIOVASCULAR: Regular rate and rhythm. ABDOMEN: Soft, epigastric tenderness. EXTREMITIES: No edema. NEUROLOGIC: No focal neurological deficits. SKIN: Warm, dry. laboratory and microbiology Laboratory Tests 03/06/25 08:14 Test 03/06/25 08:14 Range/Units Serum Glucose 139 H 74-106 mg/dL Problem List Acute chest pain secondary to NSTEMI likely type 1. Hypertension. Likely acute COPD exacerbation. Community-acquired pneumonia, Gram-positive and negative. Nicotine dependence. Diabetes mellitus type 2-controlled. Hypokalemia. Assessment/Plan Continued all current supportive medical care. Patient has been seen by Viktor Sifuentes Resident on my behalf, we have discussed the plan with the patient. Given the elevated troponins, heart score 8, risk factors, patient will be scheduled for left heart catheterization on 03/07 at 7:30 a.m. in the morning. Continue aspirin 81 mg daily. Hold Lovenox on the day of the procedure. Continue strict I&Os, cardiac diet. NPO after midnight. Rest of management by primary care. Maintain electrolytes come greater than 4, Mag greater than 2. Additional plan as per the hospital course. Plan discussed with: Patient TAYLER DE PAZ MD Mar 06, 2025 13:20
[2025-03-06] MEDS: TAMSULOSIN HYDROCHLORIDE 0.4 MG CAP PO SCH (17:51)
[2025-03-06] MEDS: ATORVASTATIN 20 MG TAB PO SCH (20:44)
[2025-03-06] MEDS: LEVALBUTEROL HCL 1.25 MG/3 ML NEB NEB PRN (21:10)
[2025-03-06] MEDS: IPRATROPIUM BROM 0.5 MG/2.5ML INH SOL ONE (21:11)
[2025-03-06] MEDS: CALCIUM CARB 500 MG CHEW TAB PO ONE (22:29)
[2025-03-07] VITALS (17 sets, daily range): BP systolic 105–154; BP diastolic 75–103; PULSE 62–105; RESP 18–22; TEMP 96.9–98.3; O2SAT 90–100
[2025-03-07] MEDS: IPRATROPIUM BROM 0.5 MG/2.5ML INH SOL NEB PRN (04:08)
[2025-03-07] MEDS: IODIXANOL 320MG/ML 100ML BTL IV ONE (07:28)
[2025-03-07] MEDS: LIDOCAINE 2%HCL (LOCAL ANESTH.) INJ 20ML MDV ONE (07:28)
[2025-03-07] MEDS: ANGIOMAX 250 MG VIAL IV ONE (08:49)
[2025-03-07] MEDS: HEPARIN SODIUM (PORCINE) 5000 UNITS/ML 1ML VIAL ONE (08:49)
[2025-03-07] MEDS: fentaNYL CITRATE 100 MCG/2 ML VL ONE (08:50)
[2025-03-07] MEDS: VERAPAMIL 2.5MG/ML INJ 2ML VIAL IV ONE (08:50)
[2025-03-07] MEDS: SODIUM CHL 0.9% 50 ML ONE (08:50)
[2025-03-07] MEDS: MIDAZOLAM HCL 2MG/2ML 2ml VIAL (1mg/ml) ONE (08:50)
[2025-03-07] MEDS: EPTIFIBATIDE INJ (2MG/ML) 10ML VIAL IV ONE (09:29)
--- NOTE | 2025-03-07 09:44 | DVHPN2 ---
Reviewed: Care Plan, H&P, Labs, Medications, Previous Orders, Radiology Changes from previous H/P or p: No Changes Eyes: No Pain, No Vision change, No Conjunctivae inflammation, No Eyelid inflammation, No Other, No Redness ENT: No Ear pain, No Ear discharge, No Nose pain, No Nose discharge, No Nose congestion, No Mouth pain, No Mouth swelling, No Throat pain, No Throat swelling, No Other Cardiovascular: Chest Pain; No Palpitations, No Orthopnea, No Paroxysmal Noc. Dyspnea, No Edema, No Lt Headedness, No Other Respiratory: Cough, Dry, Shortness of breath, SOB with excertion; No Wheezing, No Hemoptysis, No Pleuritic Pain; Sputum; No Other Gastrointestinal: Nausea; No Vomiting, No Abdominal Pain, No Diarrhea, No Constipation, No Melena, No Hematochezia, No Other Genitourinary: No Dysuria, No Frequency, No Incontinence, No Hematuria; R etention; No Other Musculoskeletal: No other; neck pain; No shoulder pain, No arm pain; back pain; No hand pain; leg pain, foot pain Skin: No Rash, No Lesions, No Jaundice, No Bruising, No Other Objective Vitals Vital Signs Date Time Temp Pulse Resp B/P (MAP) Pulse Ox O2 Delivery O2 Flow Rate FiO2 03/07/25 09:00 96.9 78 18 108/79 (89) 98 96.9 03/07/25 04:08 Nasal Cannula* 2 28 Intake/Output Intake and Output 03/07/25 07:00 Intake Total 600 ml Output Total 700 ml Balance -100 ml Intake Oral 500 ml IV Total 100 ml Output Urine Total 700 ml Medications Current Medications Medications Dose Ordered Sig/Rochelle Route Start Time Stop Time Status Last Admin Dose Admin Ondansetron HCl 4 mg Q4HP PRN IV 03/05/25 19:15 Docusate Sodium 100 mg BIDPRN PRN PO 03/05/25 19:15 Morphine Sulfate 2 mg Q4HPRN PRN IV 03/05/25 20:45 Nitroglycerin 0.4 mg Q5MINP PRN SL 03/05/25 19:15 Morphine Sulfate 2 mg Q30M PRN IV 03/05/25 20:45 Levalbuterol HCl 0.625 mg Q6HPRN PRN NEB 03/05/25 19:45 03/07/25 04:08 0.625 MG Ipratropium [place] 0.5 mg Q6HPRN PRN NEB 03/05/25 19:45 03/07/25 04:08 0.5 MG Methylprednisolone Sodium Succinate 40 mg BID IV 03/05/25 22:00 03/06/25 20:49 40 MG Nicotine 1 patch DAILY TD 03/06/25 10:00 03/06/25 11:57 1 PATCH Pantoprazole Sodium 40 mg DAILY IV 03/06/25 10:00 03/06/25 11:53 40 MG Sucralfate 1 gm BID@0600,2200 GT 03/05/25 22:00 03/07/25 06:06 1 GM Ceftriaxone Sodium 50 ml @ 100 mls/hr DAILY@09 IV 03/06/25 09:00 03/06/25 11:52 100 MLS/HR Doxycycline Hyclate 100 ml @ 50 mls/hr Q12H IV 03/05/25 19:45 03/06/25 19:45 50 MLS/HR Atorvastatin Calcium 40 mg HS PO 03/06/25 22:00 03/06/25 20:44 40 MG Aspirin 81 mg DAILY PO 03/06/25 10:00 03/06/25 11:54 81 MG Trazodone HCl 100 mg HS PO 03/05/25 22:00 03/06/25 20:44 100 MG Tamsulosin HCl 0.4 mg QPM PO 03/06/25 18:00 03/06/25 17:51 0.4 MG Cyclobenzaprine HCl 5 mg TID PO 03/05/25 22:00 03/07/25 06:06 5 MG Sertraline HCl 50 mg DAILY PO 03/06/25 10:00 03/06/25 11:53 50 MG Enoxaparin Sodium 70 mg Q12HR SC 03/08/25 10:00 Laboratory Results Laboratory Tests 03/06/25 08:14 Urinalysis Test 03/05/25 20:20 Urine Color Yellow (Yellow) Urine Clarity Clear (Clear) Urine pH 6.5 (5.0-9.0) Urine Specific [place] 1.025 (1.001-1.035) Urine Protein Trace (Negative) H Urine Ketones Negative (Negative) Urine Blood Negative /uL (Negative) Urine Nitrite Negative (Negative) Urine Bilirubin Negative (Negative) Urine Urobilinogen Normal mg/dL (Negative) Urine Leukocyte Esterase Negative /uL (Negative) Urine RBC 3 /hpf (0 - 3) Urine Microscopic WBC < 1 /HPF (0-3) Urine Squamous Epithelial Cells Few /hpf (<5) Urine Bacteria Few /hpf (None Seen) H Urine Glucose Normal mg/dL (Normal) Microbiology Microbiology Date/Time Source Procedure Growth Status 03/05/25 23:50 Nose MRSA Screen - Final Complete 03/05/25 16:36 Blood Blood Culture - Preliminary NO GROWTH AFTER 24 HOURS OF INCUBATION. Resulted Labs and/or images reviewed: Labs reviewed by me, Image(s) reviewed by me Assessment/Plan Assessment/Plan Non ST-elevation MD troponin 1016: Treatment per ACS protocol cardiology consult for Dr. Troy, Dr. Troy planning for left heart catheterization today Acute COPD exacerbation Recent community-acquired pneumonia treated with the IV antibiotics at [facility] and now on p.o. levofloxacin, we will put him on doxycycline and iv Rocephin Exertional chest pain Sinus tachycardia Acute on chronic hypoxic respiratory failure Chronic current smoker: Counseling Type 2 diabetes Generalized anxiety disorder BPH Chronic back pain Insomnia Iron-deficiency anemia Hypertension Time spent 50 minutes Advanced care planning time 20 minutes Patient is full code code Plan discussed with: Patient My Orders Orders - DEX GRIFFITH MD Procedure Category Date Status Time *Consult CONS 03/06/[address]Mukeshchandra Edmonds 12:03 Date of Service: Mar 07, 2025 Billing Provider: DEX GRIFFITH MD Common Visit Codes: [id number] INP/OBS CARE(HIGH) DEX GRIFFITH MD Mar 07, 2025 09:44
[2025-03-07] MEDS: CLOPIDOGREL BISULFATE 75 MG TAB ONE (10:28)
--- NOTE | 2025-03-07 10:48 | DVHSR ---
APPROVED REPORT EXAM: Two-dimensional and M-mode echocardiogram with Doppler and color Doppler. Blood Pressure: 114/83 mmHg INDICATION Rule out structural heart disease RISK FACTORS Height: 5'7, Weight: 156 DIMENSIONS LVDd 4.3 (3.8-5.7cm) LA (2D) 3.3 (1.9-4.0cm) Aortic Root (2.0-3.7cm) LVDs 3.1 (2.5-4.0cm) LA (MM) (1.9-4.0cm) Aortic Cusp Exc (1.5-2.0cm) EF (%) 52.0 (55-70%) Rt. Atrium 4.7 (1.9-4.0cm) Asc. Aorta cm IVSd 0.9 (0.7-1.1cm) RV (D) (1.8-2.4cm) PWd 0.8 (0.7-1.1cm) Mitral Valve Mitral Mitral Stenosis E wave 0.38m/s MV Mean GR. mmHg A wave 0.00m/s MV Peak GR. mmHg E/A ratio 0.0 2D MVA cm2 DECEL Time 333ms PRESS 1/2 Time ms Aortic Valve Aortic Valve Aortic Stenosis V1 0.85m/s AO Mean GR. 2mmHg V2 0.83m/s AO Peak GR. 3mmHg Pulmonic Valve V2 0.73m/s Other Information Technically limited study due to body habitus. Conclusion LV EF IS 55% AND IS NORMAL MILD HYPOKINESIS OF APICAL AND ANTERIOR WALL NORMAL VALVES SLIGHTLY DILATED RV NO EFFUSION
--- NOTE | 2025-03-07 11:46 | DVHOP ---
DATE OF SURGERY: 03/07/2025 TECHNIQUE PERFORMED: * Emergency case. * Ultrasound of the right radial artery. * Management of conscious sedation. * Ultrasound-guided insertion of a 6-[place] arterial line from the right radial artery. * Left coronary angiography. * Mechanical thrombectomy of the left anterior artery with [place] catheter. * Balloon angioplasty of the proximal region of the left anterior descending artery with 2.75 x 15 mm length semi-compliant balloon. * Stenting and angioplasty of the proximal region of the left anterior descending artery with 3.0 x 18 mm length [place] stent of Xoomsys. * Intravascular ultrasound of the left main and also of the left anterior descending artery. * The balloon angioplasty of the left anterior artery stent with 3.5 x 15 mm length noncompliant balloon and mid artery size to 3.6 mm in size. * Intracoronary administration of 10 mL of the Integrilin. COMPLICATIONS: None. ASSISTANTS: Assisted by our staff here is Samuel. Other assistants are Loy Del Real, and Navya. INDICATIONS: The patient has underlying acute myocardial infarction, troponin more than 1000, 99.9% narrowing of the left anterior artery, type C lesion, bifurcation lesion in the proximal region. DESCRIPTION OF PROCEDURE: Risks and benefits all have been explained to the patient, understands very well. A 6-[place] arterial line had been placed from right radial artery. The patient got a cocktail of 100 mcg of nitroglycerin, 2.5 mg of verapamil, 2000 units of heparin had been given. We have put JL3.5 6-[place] guiding catheter with a side hole. Angiomax was started. Subsequently, we also used MS [place]is[place] wire, able to go very well and subsequently now we also did [place] catheter. Thrombectomy was done. Clot had been removed. Subsequently now we have put a balloon 2.75 x 15 mm length semi-compliant balloon. Angioplasty was done for few times. Balloon had been deflated and subsequently we put a second wire in the diagonal artery because it was a bifurcation lesion, which was a [place] wire and subsequently we put a stent to 3.0 x 18 mm length [place] stent of Xoomsys, inflated to make the stent size to 3.25 mm and that it was taken up to 17 atmosphere and the stent have been increased to more than 3.25 mm in size. Subsequently, balloons had been discontinued and now we did intravascular ultrasound. We found some gaps, so we put a noncompliant balloon 3.5 x 15 and balloon angioplasty was done for a few times of the proximal, mid, and distal region of the stent. We had taken up to 17 atmosphere. The stent size was increased to 3.6 mm in size. The balloon had been deflated. The procedure went well. Integrilin intracoronary was given 10 mL. We also gave an intermittent dose of nicardipine. Angiography was done. Results were satisfactory. CONCLUSION: * Prior to performing the procedure #1, the left anterior artery, proximal lesion, bifurcation lesion, type C lesion, 99.9% narrowing. LEXI grade 2 flow. * The postprocedure LEXI grade 3 flow, Residual stenosis is 0%. No spasm, no dissection or thrombosis. The procedure went well. PLAN OF ACTION: Advised for the aspirin, Plavix, beta-derek and cholesterol-reducing medicine. Outpatient followup. Zeinab Troy MD MP/MARAL/DICK TID: [id number] RECEIPT: [id number]
--- NOTE | 2025-03-07 15:16 | DVHOP ---
DATE OF SURGERY: 03/07/2025 TECHNIQUES PERFORMED: * Emergency case. * Ultrasound of right radial artery. * Management of conscious sedation. * Ultrasound guided insertion of a 6-[place] arterial line from the right radial artery. * Left heart cath. * Left ventriculogram. * [place] selective left and right coronary angiography. ASSISTANTS: Assisted by our staff here, Ela Baker Josue and Navya. COMPLICATIONS: None. INDICATIONS: The patient has underlying acute non-ST elevation myocardial infarction. DESCRIPTION OF PROCEDURE: Risks and benefits all have been explained to the patient, understood and accepted very well. The patient has been brought to the labeling specialist. The right radial area thoroughly cleaned with soap and Betadine. A 6-Italian arterial line had been placed in a standard manner. Under ultrasound guidance, TIG catheter 5-Italian 4.0 and the left coronary angio done. With the help of similar catheter, the right coronary angiography done. With the help of the pigtail catheter, at the end of the procedure, the left cath had been done and left ventriculogram was done. with the help of the pigtail catheter, complete left heart cath had been done. The left ventriculogram was done in the right anterior oblique view with a total of 20 mL dye. Post-LV gram, left ventricular angiography was performed with help of pull-through technique. Aortic pressure was also performed. J-wire was passed. The pigtail catheter also has been discontinued, procedure completed. IMPRESSION: * Normal left main. * Left anterior descending artery approximately 99.9% narrowing, LEXI grade 2 flow the bifurcation lesion. The diagonal artery is widely open. * Circumflex proximal artery is a moderate size artery normal. * Right dominant artery. Posterior descending artery has 70% narrowing noted in mid region. * Ejection fraction of the left ventricle is in the range of 45%, apical anterior wall hypokinesis noted. Dilated left ventricle. PLAN OF ACTION: Advised the patient to undergo angioplasty and stent of the left artery. Zeinab Troy MD MP/SERGO/DICK TID: [id number] RECEIPT: [id number] [facility]ITAL[facility]
--- NOTE | 2025-03-07 21:07 | DVHPN2 ---
Progress Note - Dictate Date Seen: Mar 07, 2025 Medical Necessity Reason Pt with a Central, PICC or Fol: No Subjective Patient was seen and evaluated in follow up. Patient underwent left heart cath, [place] selective left and right coronary angiography, left coronary angiography, mechanical thrombectomy of the left anterior artery with [place] catheter, balloon angioplasty of the proximal region of the left anterior descending artery, stenting and angioplasty of the proximal region of the left anterior descending artery, balloon angioplasty of the left anterior artery stent. Prior to performing the procedure #1, the left anterior artery, proximal lesion, bifurcation lesion, type C lesion, 99.9% narrowing. LEXI grade 2 flow. The postprocedure LEXI grade 3 flow. Residual stenosis is 0%. No spasm, no dissection or thrombosis. The procedure went well. Advised for the aspirin, Plavix, beta-derek and cholesterol-reducing medicine. Outpatient followup. Telemetry reviewed. vital signs Vital Sign Date Time Temp Pulse Resp B/P (MAP) Pulse Ox O2 Delivery O2 Flow Rate FiO2 03/07/25 16:33 98.3 103 20 105/75 (85) 93 98.3 03/07/25 14:43 Nasal Cannula* 2 28 Total Intake and Output 03/06/25 03/06/25 03/07/25 15:00 23:00 07:00 Intake Total 600 ml 0 ml Output Total 700 ml Balance 600 ml -700 ml medications Current Medications Medications Dose Ordered Sig/Rochelle Route Start Time Stop Time Status Last Admin Dose Admin Ondansetron HCl 4 mg Q4HP PRN IV 03/05/25 19:15 Docusate Sodium 100 mg BIDPRN PRN PO 03/05/25 19:15 Morphine Sulfate 2 mg Q4HPRN PRN IV 03/05/25 20:45 Nitroglycerin 0.4 mg Q5MINP PRN SL 03/05/25 19:15 Morphine Sulfate 2 mg Q30M PRN IV 03/05/25 20:45 Levalbuterol HCl 0.625 mg Q6HPRN PRN NEB 03/05/25 19:45 03/07/25 14:43 0.625 MG Ipratropium [place] 0.5 mg Q6HPRN PRN NEB 03/05/25 19:45 03/07/25 14:43 0.5 MG Methylprednisolone Sodium Succinate 40 mg BID IV 03/05/25 22:00 03/06/25 20:49 40 MG Nicotine 1 patch DAILY TD 03/06/25 10:00 03/07/25 12:39 1 PATCH Pantoprazole Sodium 40 mg DAILY IV 03/06/25 10:00 03/06/25 11:53 40 MG Sucralfate 1 gm BID@0600,2200 GT 03/05/25 22:00 03/07/25 06:06 1 GM Ceftriaxone Sodium 50 ml @ 100 mls/hr DAILY@09 IV 03/06/25 09:00 03/06/25 11:52 100 MLS/HR Doxycycline Hyclate 100 ml @ 50 mls/hr Q12H IV 03/05/25 19:45 03/06/25 19:45 50 MLS/HR Atorvastatin Calcium 40 mg HS PO 03/06/25 22:00 03/06/25 20:44 40 MG Aspirin 81 mg DAILY PO 03/06/25 10:00 03/06/25 11:54 81 MG Trazodone HCl 100 mg HS PO 03/05/25 22:00 03/06/25 20:44 100 MG Tamsulosin HCl 0.4 mg QPM PO 03/06/25 18:00 03/07/25 17:39 0.4 MG Cyclobenzaprine HCl 5 mg TID PO 03/05/25 22:00 03/07/25 14:03 5 MG Sertraline HCl 50 mg DAILY PO 03/06/25 10:00 03/06/25 11:53 50 MG Enoxaparin Sodium 70 mg Q12HR SC 03/08/25 10:00 Clopidogrel Bisulfate 75 mg DAILY PO 03/08/25 10:00 Metoprolol Tartrate 25 mg BID PO 03/07/25 22:00 objective GENERAL: Alert and oriented x 3. No acute distress. EYES: PERRL, EOMI. Anicteric. HENT: Moist mucous membranes. LUNGS: Decreased breath sounds. CARDIOVASCULAR: Regular rate and rhythm. ABDOMEN: Soft, epigastric tenderness. EXTREMITIES: No edema. NEUROLOGIC: No focal neurological deficits. SKIN: Warm, dry. laboratory and microbiology Laboratory Tests 03/06/25 08:14 Test 03/06/25 08:14 Range/Units Serum Glucose 139 H 74-106 mg/dL Problem List Acute chest pain secondary to NSTEMI likely type 1. Hypertension. Likely acute COPD exacerbation. Community-acquired pneumonia, Gram-positive and negative. Nicotine dependence. Diabetes mellitus type 2-controlled. Hypokalemia. Assessment/Plan Continued all current supportive medical care. Aspirin, Lipitor, Plavix, Metoprolol. IV antibiotics as ordered. DVT and GI prophylactics. Morphine for pain management. Nitro SL. Additional plan as per the hospital course. Plan discussed with: Patient TAYLER DE PAZ MD Mar 07, 2025 18:22
[2025-03-07] MEDS: METOPROLOL TARTRATE 25 MG TAB PO SCH (22:37)
[2025-03-08] VITALS (14 sets, daily range): BP systolic 108–137; BP diastolic 68–87; PULSE 70–88; RESP 17–20; TEMP 97.3–98.2; O2SAT 93–98
[2025-03-08 06:57] LABS: Alanine Aminotransferase 22 U/L (7-40); Albumin 3.9 g/dL (3.2-4.8); Alkaline Phosphatase 57 U/L (46-116); Anion Gap 8 (5-15); BUN/Creatinine Ratio 32.0 (10.0-20.0); Calcium 9.2 mg/dL (8.7-10.4); Carbon Dioxide 31 mmol/L (20-31); Chloride 104 mmol/L (98-107); Potassium 4.8 mmol/L (3.5-5.1); Sodium 143 mmol/L (136-145); Total Protein 6.5 g/dL (5.7-8.2)
[2025-03-08 06:58] LABS: Bilirubin, Total 0.3 mg/dL (0.2-1.0)
[2025-03-08 07:01] LABS: Blood Urea Nitrogen 24 mg/dL (9-23); Glucose 118 mg/dL (74-106)
--- NOTE | 2025-03-08 09:29 | DVHPN2 ---
Reviewed: Care Plan, H&P, Labs, Medications, Previous Orders, Radiology Changes from previous H/P or p: No Changes Eyes: No Pain, No Vision change, No Conjunctivae inflammation, No Eyelid inflammation, No Other, No Redness ENT: No Ear pain, No Ear discharge, No Nose pain, No Nose discharge, No Nose congestion, No Mouth pain, No Mouth swelling, No Throat pain, No Throat swelling, No Other Cardiovascular: Chest Pain; No Palpitations, No Orthopnea, No Paroxysmal Noc. Dyspnea, No Edema, No Lt Headedness, No Other Respiratory: Cough, Dry, Shortness of breath, SOB with excertion; No Wheezing, No Hemoptysis, No Pleuritic Pain; Sputum; No Other Gastrointestinal: Nausea; No Vomiting, No Abdominal Pain, No Diarrhea, No Constipation, No Melena, No Hematochezia, No Other Genitourinary: No Dysuria, No Frequency, No Incontinence, No Hematuria; R etention; No Other Musculoskeletal: No other; neck pain; No shoulder pain, No arm pain; back pain; No hand pain; leg pain, foot pain Skin: No Rash, No Lesions, No Jaundice, No Bruising, No Other Objective Vitals Vital Signs Date Time Temp Pulse Resp B/P (MAP) Pulse Ox O2 Delivery O2 Flow Rate FiO2 03/08/25 08:52 97.8 74 18 113/68 (83) 95 97.8 03/08/25 05:50 Nasal Cannula* 2 28 Intake/Output Intake and Output 03/08/25 07:00 Intake Total 1800 ml Balance 1800 ml Intake Oral 1700 ml IV Total 100 ml # Voids 5 Medications Current Medications Medications Dose Ordered Sig/Rochelle Route Start Time Stop Time Status Last Admin Dose Admin Ondansetron HCl 4 mg Q4HP PRN IV 03/05/25 19:15 Docusate Sodium 100 mg BIDPRN PRN PO 03/05/25 19:15 Morphine Sulfate 2 mg Q4HPRN PRN IV 03/05/25 20:45 Nitroglycerin 0.4 mg Q5MINP PRN SL 03/05/25 19:15 Morphine Sulfate 2 mg Q30M PRN IV 03/05/25 20:45 Levalbuterol HCl 0.625 mg Q6HPRN PRN NEB 03/05/25 19:45 03/08/25 05:49 0.625 MG Ipratropium [place] 0.5 mg Q6HPRN PRN NEB 03/05/25 19:45 03/08/25 05:48 0.5 MG Methylprednisolone Sodium Succinate 40 mg BID IV 03/05/25 22:00 03/07/25 22:33 40 MG Nicotine 1 patch DAILY TD 03/06/25 10:00 03/08/25 09:06 1 PATCH Pantoprazole Sodium 40 mg DAILY IV 03/06/25 10:00 03/08/25 09:07 40 MG Sucralfate 1 gm BID@0600,2200 GT 03/05/25 22:00 03/08/25 05:32 1 GM Ceftriaxone Sodium 50 ml @ 100 mls/hr DAILY@09 IV 03/06/25 09:00 03/08/25 09:11 100 MLS/HR Doxycycline Hyclate 100 ml @ 50 mls/hr Q12H IV 03/05/25 19:45 03/08/25 07:10 50 MLS/HR Atorvastatin Calcium 40 mg HS PO 03/06/25 22:00 03/07/25 22:33 40 MG Aspirin 81 mg DAILY PO 03/06/25 10:00 03/08/25 09:06 81 MG Trazodone HCl 100 mg HS PO 03/05/25 22:00 03/07/25 23:49 100 MG Tamsulosin HCl 0.4 mg QPM PO 03/06/25 18:00 03/07/25 17:39 0.4 MG Cyclobenzaprine HCl 5 mg TID PO 03/05/25 22:00 03/08/25 05:32 5 MG Sertraline HCl 50 mg DAILY PO 03/06/25 10:00 03/08/25 09:06 50 MG Enoxaparin Sodium 70 mg Q12HR SC 03/08/25 10:00 Clopidogrel Bisulfate 75 mg DAILY PO 03/08/25 10:00 Metoprolol Tartrate 25 mg BID PO 03/07/25 22:00 03/07/25 22:37 25 MG Laboratory Results Laboratory Tests 03/06/25 08:14 03/08/25 04:42 Chemistry Test 03/08/25 04:42 Albumin 3.9 g/dL (3.2-4.8) Calcium Level 9.2 mg/dL (8.7-10.4) Total Protein 6.5 g/dL (5.7-8.2) LFT Test 03/08/25 04:42 Alanine Aminotransferase (ALT) 22 U/L (7-40) Alkaline Phosphatase 57 U/L (46-116) Aspartate Amino Transferase (AST) 32 U/L (13-40) Total Bilirubin 0.3 mg/dL (0.2-1.0) Urinalysis Test 03/05/25 20:20 Urine Color Yellow (Yellow) Urine Clarity Clear (Clear) Urine pH 6.5 (5.0-9.0) Urine Specific [place] 1.025 (1.001-1.035) Urine Protein Trace (Negative) H Urine Ketones Negative (Negative) Urine Blood Negative /uL (Negative) Urine Nitrite Negative (Negative) Urine Bilirubin Negative (Negative) Urine Urobilinogen Normal mg/dL (Negative) Urine Leukocyte Esterase Negative /uL (Negative) Urine RBC 3 /hpf (0 - 3) Urine Microscopic WBC < 1 /HPF (0-3) Urine Squamous Epithelial Cells Few /hpf (<5) Urine Bacteria Few /hpf (None Seen) H Urine Glucose Normal mg/dL (Normal) Microbiology Microbiology Date/Time Source Procedure Growth Status 03/05/25 23:50 Nose MRSA Screen - Final Complete 03/05/25 16:36 Blood Blood Culture - Preliminary NO GROWTH AFTER 48 HOURS OF INCUBATION. Resulted Labs and/or images reviewed: Labs reviewed by me, Image(s) reviewed by me Assessment/Plan Assessment/Plan Non ST-elevation [place] troponin 1016: Treatment per ACS protocol cardiology consult for Dr. Troy, emergency left heart catheterization by Dr. Aditya Troy with a stenting of 99.9 % narrowing of LAD Acute COPD exacerbation Recent community-acquired pneumonia treated with the IV antibiotics at [facility] and now on p.o. levofloxacin, we will put him on doxycycline and iv Rocephin Exertional chest pain Sinus tachycardia Acute on chronic hypoxic respiratory failure Chronic current smoker: Counseling Type 2 diabetes Generalized anxiety disorder BPH Chronic back pain Insomnia Iron-deficiency anemia Hypertension Time spent 50 minutes Advanced care planning time 20 minutes Patient is full code code Physical therapy ordered Plan discussed with: Patient Date of Service: Mar 08, 2025 Billing Provider: DEX GRIFFITH MD Common Visit Codes: [id number] INP/OBS CARE(HIGH) DEX GRIFFITH MD Mar 08, 2025 09:29
[2025-03-08] MEDS: ENOXAPARIN SOD 80 MG/0.8ML SYRINGE SC SCH (09:44)
[2025-03-08] MEDS: CLOPIDOGREL BISULFATE 75 MG TAB PO SCH (09:44)
--- NOTE | 2025-03-08 18:52 | DVHPN2 ---
Progress Note - Dictate Date Seen: Mar 08, 2025 Medical Necessity Reason Pt with a Central, PICC or Fol: No Subjective Patient was seen and evaluated in follow up. Patient is on 2 LPM NC. Patient is complaining of SOB. BUN 24. MRSA is negative. Telemetry reviewed. vital signs Vital Sign Date Time Temp Pulse Resp B/P (MAP) Pulse Ox O2 Delivery O2 Flow Rate FiO2 03/08/25 17:00 97.9 71 18 137/87 (104) 93 97.9 03/08/25 10:00 Nasal Cannula 2.0 03/08/25 10:00 28 Total Intake and Output 03/07/25 03/07/25 03/08/25 15:00 23:00 07:00 Intake Total 1450 ml 350 ml Balance 1450 ml 350 ml medications Current Medications Medications Dose Ordered Sig/Rochelle Route Start Time Stop Time Status Last Admin Dose Admin Ondansetron HCl 4 mg Q4HP PRN IV 03/05/25 19:15 Docusate Sodium 100 mg BIDPRN PRN PO 03/05/25 19:15 Morphine Sulfate 2 mg Q4HPRN PRN IV 03/05/25 20:45 Nitroglycerin 0.4 mg Q5MINP PRN SL 03/05/25 19:15 Morphine Sulfate 2 mg Q30M PRN IV 03/05/25 20:45 Levalbuterol HCl 0.625 mg Q6HPRN PRN NEB 03/05/25 19:45 03/08/25 15:34 0.625 MG Ipratropium [place] 0.5 mg Q6HPRN PRN NEB 03/05/25 19:45 03/08/25 15:34 0.5 MG Methylprednisolone Sodium Succinate 40 mg BID IV 03/05/25 22:00 03/08/25 09:44 40 MG Nicotine 1 patch DAILY TD 03/06/25 10:00 03/08/25 09:06 1 PATCH Pantoprazole Sodium 40 mg DAILY IV 03/06/25 10:00 03/08/25 09:07 40 MG Sucralfate 1 gm BID@0600,2200 GT 03/05/25 22:00 03/08/25 05:32 1 GM Ceftriaxone Sodium 50 ml @ 100 mls/hr DAILY@09 IV 03/06/25 09:00 03/08/25 09:11 100 MLS/HR Doxycycline Hyclate 100 ml @ 50 mls/hr Q12H IV 03/05/25 19:45 03/08/25 07:10 50 MLS/HR Atorvastatin Calcium 40 mg HS PO 03/06/25 22:00 03/07/25 22:33 40 MG Aspirin 81 mg DAILY PO 03/06/25 10:00 03/08/25 09:06 81 MG Trazodone HCl 100 mg HS PO 03/05/25 22:00 03/07/25 23:49 100 MG Tamsulosin HCl 0.4 mg QPM PO 03/06/25 18:00 03/08/25 17:46 0.4 MG Cyclobenzaprine HCl 5 mg TID PO 03/05/25 22:00 03/08/25 05:32 5 MG Sertraline HCl 50 mg DAILY PO 03/06/25 10:00 03/08/25 09:06 50 MG Enoxaparin Sodium 70 mg Q12HR SC 03/08/25 10:00 03/08/25 09:44 70 MG Clopidogrel Bisulfate 75 mg DAILY PO 03/08/25 10:00 03/08/25 09:44 75 MG Metoprolol Tartrate 25 mg BID PO 03/07/25 22:00 03/08/25 09:45 25 MG objective GENERAL: Alert and oriented x 3. No acute distress. EYES: PERRL, EOMI. Anicteric. HENT: Moist mucous membranes. LUNGS: Decreased breath sounds. CARDIOVASCULAR: Regular rate and rhythm. ABDOMEN: Soft, epigastric tenderness. EXTREMITIES: No edema. NEUROLOGIC: No focal neurological deficits. SKIN: Warm, dry. laboratory and microbiology Laboratory Tests 03/08/25 04:42 03/06/25 08:14 Test 03/08/25 04:42 Range/Units Serum Glucose 118 H 74-106 mg/dL Problem List Acute chest pain secondary to NSTEMI likely type 1. Hypertension. Likely acute COPD exacerbation. Community-acquired pneumonia, Gram-positive and negative. Nicotine dependence. Diabetes mellitus type 2-controlled. Hypokalemia. Assessment/Plan Continued all current supportive medical care. Aspirin, Lipitor, Plavix, Metoprolol. IV antibiotics as ordered. DVT and GI prophylactics. Morphine for pain management. Nitro SL. Additional plan as per the hospital course. Plan discussed with: Patient TAYLER DE PAZ MD Mar 08, 2025 18:52
[2025-03-09 01:00] VITALS: BP 110/74; PULSE 86; RESP 19; TEMP 98.1; O2SAT 96
[2025-03-09 05:00] VITALS: BP 133/91; PULSE 79; RESP 18; TEMP 97.9; O2SAT 96
[2025-03-09 08:00] VITALS: PULSE 78; PULSE 79; RESP 18; O2SAT 95
[2025-03-09] MEDS ORDERED: MET50T PO (08:39)
[2025-03-09] MEDS ORDERED: DOXY100C79 PO (08:39)
[2025-03-09] MEDS ORDERED: CLOP75TA28 PO (08:39)
[2025-03-09] MEDS ORDERED: ATOR-507 PO (08:39)
[2025-03-09] MEDS ORDERED: ASPI1TAB19 PO (08:39)
--- NOTE | 2025-03-09 08:42 | DVHPN2 ---
Reviewed: Care Plan, H&P, Labs, Medications, Previous Orders, Radiology Changes from previous H/P or p: No Changes Eyes: No Pain, No Vision change, No Conjunctivae inflammation, No Eyelid inflammation, No Other, No Redness ENT: No Ear pain, No Ear discharge, No Nose pain, No Nose discharge, No Nose congestion, No Mouth pain, No Mouth swelling, No Throat pain, No Throat swelling, No Other Cardiovascular: Chest Pain; No Palpitations, No Orthopnea, No Paroxysmal Noc. Dyspnea, No Edema, No Lt Headedness, No Other Respiratory: Cough, Dry, Shortness of breath, SOB with excertion; No Wheezing, No Hemoptysis, No Pleuritic Pain; Sputum; No Other Gastrointestinal: Nausea; No Vomiting, No Abdominal Pain, No Diarrhea, No Constipation, No Melena, No Hematochezia, No Other Genitourinary: No Dysuria, No Frequency, No Incontinence, No Hematuria; R etention; No Other Musculoskeletal: No other; neck pain; No shoulder pain, No arm pain; back pain; No hand pain; leg pain, foot pain Skin: No Rash, No Lesions, No Jaundice, No Bruising, No Other Objective Vitals Vital Signs Date Time Temp Pulse Resp B/P (MAP) Pulse Ox O2 Delivery O2 Flow Rate FiO2 03/09/25 05:00 97.9 79 18 133/91 (105) 96 97.9 03/08/25 22:31 2.0 28 03/08/25 20:00 Nasal Cannula* Intake/Output Intake and Output 03/09/25 07:00 Intake Total 1100 ml Output Total 900 ml Balance 200 ml Intake Oral 950 ml IV Total 150 ml Output Urine Total 900 ml # Voids 3 # Bowel Movements 1 Medications Current Medications Medications Dose Ordered Sig/Rochelle Route Start Time Stop Time Status Last Admin Dose Admin Ondansetron HCl 4 mg Q4HP PRN IV 03/05/25 19:15 Docusate Sodium 100 mg BIDPRN PRN PO 03/05/25 19:15 Morphine Sulfate 2 mg Q4HPRN PRN IV 03/05/25 20:45 Nitroglycerin 0.4 mg Q5MINP PRN SL 03/05/25 19:15 Morphine Sulfate 2 mg Q30M PRN IV 03/05/25 20:45 Levalbuterol HCl 0.625 mg Q6HPRN PRN NEB 03/05/25 19:45 03/08/25 15:34 0.625 MG Ipratropium [place] 0.5 mg Q6HPRN PRN NEB 03/05/25 19:45 03/08/25 15:34 0.5 MG Methylprednisolone Sodium Succinate 40 mg BID IV 03/05/25 22:00 03/08/25 21:38 40 MG Nicotine 1 patch DAILY TD 03/06/25 10:00 03/08/25 09:06 1 PATCH Pantoprazole Sodium 40 mg DAILY IV 03/06/25 10:00 03/08/25 09:07 40 MG Sucralfate 1 gm BID@0600,2200 GT 03/05/25 22:00 03/09/25 05:06 1 GM Ceftriaxone Sodium 50 ml @ 100 mls/hr DAILY@09 IV 03/06/25 09:00 03/08/25 09:11 100 MLS/HR Doxycycline Hyclate 100 ml @ 50 mls/hr Q12H IV 03/05/25 19:45 03/09/25 06:32 50 MLS/HR Atorvastatin Calcium 40 mg HS PO 03/06/25 22:00 03/08/25 21:39 40 MG Aspirin 81 mg DAILY PO 03/06/25 10:00 03/08/25 09:06 81 MG Trazodone HCl 100 mg HS PO 03/05/25 22:00 03/08/25 21:38 100 MG Tamsulosin HCl 0.4 mg QPM PO 03/06/25 18:00 03/08/25 17:46 0.4 MG Cyclobenzaprine HCl 5 mg TID PO 03/05/25 22:00 03/09/25 05:06 5 MG Sertraline HCl 50 mg DAILY PO 03/06/25 10:00 03/08/25 09:06 50 MG Enoxaparin Sodium 70 mg Q12HR SC 03/08/25 10:00 03/08/25 21:39 70 MG Clopidogrel Bisulfate 75 mg DAILY PO 03/08/25 10:00 03/08/25 09:44 75 MG Metoprolol Tartrate 25 mg BID PO 03/07/25 22:00 03/08/25 21:38 25 MG Laboratory Results Laboratory Tests 03/06/25 08:14 03/08/25 04:42 Urinalysis Test 03/05/25 20:20 Urine Color Yellow (Yellow) Urine Clarity Clear (Clear) Urine pH 6.5 (5.0-9.0) Urine Specific [place] 1.025 (1.001-1.035) Urine Protein Trace (Negative) H Urine Ketones Negative (Negative) Urine Blood Negative /uL (Negative) Urine Nitrite Negative (Negative) Urine Bilirubin Negative (Negative) Urine Urobilinogen Normal mg/dL (Negative) Urine Leukocyte Esterase Negative /uL (Negative) Urine RBC 3 /hpf (0 - 3) Urine Microscopic WBC < 1 /HPF (0-3) Urine Squamous Epithelial Cells Few /hpf (<5) Urine Bacteria Few /hpf (None Seen) H Urine Glucose Normal mg/dL (Normal) Microbiology Microbiology Date/Time Source Procedure Growth Status 03/05/25 23:50 Nose MRSA Screen - Final Complete 03/05/25 16:36 Blood Blood Culture - Preliminary NO GROWTH AFTER 72 HOURS OF INCUBATION. Resulted Labs and/or images reviewed: Labs reviewed by me, Image(s) reviewed by me Assessment/Plan Assessment/Plan Non ST-elevation [place] troponin 1016: Treatment per ACS protocol cardiology consult for Dr. Troy, emergency left heart catheterization by Dr. Aditya Troy with a stenting of 99.9 % narrowing of LAD Acute COPD exacerbation Recent community-acquired pneumonia treated with the IV antibiotics at [facility] and now : Doxycycline Exertional chest pain Sinus tachycardia Acute on chronic hypoxic respiratory failure Chronic current smoker: Counseling Type 2 diabetes Generalized anxiety disorder BPH Chronic back pain Insomnia Iron-deficiency anemia Hypertension Time spent 50 minutes Advanced care planning time 20 minutes Patient is full code code Physical therapy ordered Patient on room air and symptom-free at the time of discharge Plan discussed with: Patient Date of Service: Mar 09, 2025 Billing Provider: DEX GRIFFITH MD Common Visit Codes: [id number] INP/OBS CARE(HIGH) DEX GRIFFITH MD Mar 09, 2025 08:42
--- NOTE | 2025-03-09 08:47 | DVHDS2 ---
Discharge Summary Date of Admission Mar 05, 2025 at 19:02 Date of Discharge: Mar 09, 2025 Admitting Diagnosis Chest pain Wounds: Left heart catheterization Labs/Diagnostic Data: Laboratory Results Test 03/08/25 15:16 03/08/25 04:42 03/06/25 08:14 03/05/25 20:20 POC Glucose 132 mg/dl (70-106) Sodium Level 143 mmol/L (136-145) Potassium Level 4.8 mmol/L (3.5-5.1) Chloride Level 104 mmol/L (98-107) Carbon Dioxide Level 31 mmol/L (20-31) Anion Gap 8 (5-15) Blood Urea Nitrogen 24 mg/dL (9-23) Creatinine 0.75 mg/dL (0.700-1.30) Glomerular Filtration Rate Calc 103 mL/min (>90) BUN/Creatinine Ratio 32.0 (10.0-20.0) Serum Glucose 118 mg/dL (74-106) Calcium Level 9.2 mg/dL (8.7-10.4) Total Bilirubin 0.3 mg/dL (0.2-1.0) Aspartate Amino Transferase (AST) 32 U/L (13-40) Alanine Aminotransferase (ALT) 22 U/L (7-40) Alkaline Phosphatase 57 U/L (46-116) Total Protein 6.5 g/dL (5.7-8.2) Albumin 3.9 g/dL (3.2-4.8) White Blood Count 8.2 10^3/uL (4.4-10.8) Red Blood Count 5.29 10^6/uL (4.5-5.90) Hemoglobin 15.5 g/dL (13.5-17.5) Hematocrit 46.3 % (41.0-53.0) Mean Corpuscular Volume 87.5 fL (80.0-100.0) Mean Corpuscular Hemoglobin 29.4 pg (28.0-32.0) Mean Corpuscular Hemoglobin Concent 33.5 g/dL (32.0-36.0) Red Cell Distribution Width 12.9 % (11.8-14.3) Platelet Count 217 10^3/uL (140-450) Mean Platelet Volume 6.8 fL (6.9-10.8) Neutrophils (%) (Auto) 87.4 % (37.0-80.0) Lymphocytes (%) (Auto) 10.5 % (10.0-50.0) Monocytes (%) (Auto) 1.7 % (0.0-12.0) Eosinophils (%) (Auto) 0.0 % (0.0-7.0) Basophils (%) (Auto) 0.4 % (0.0-2.0) Neutrophils # (Auto) 7.1 10 ^3/uL (1.6-8.6) Lymphocytes # (Auto) 0.9 10 ^3/uL (0.4-5.4) Monocytes # (Auto) 0.1 10 ^3/uL (0-1.3) Eosinophils # (Auto) 0 10 ^3/uL (0-0.8) Basophils # (Auto) 0 10 ^3/uL (0-0.2) Nucleated Red Blood Cells 0.0 % Triglycerides Level 70 mg/dL (< 150) Cholesterol Level 165 mg/dL (< 200) LDL Cholesterol 114 mg/dL (< 100) HDL Cholesterol 43 mg/dL (40-59) Urine Color Yellow (Yellow) Urine Clarity Clear (Clear) Urine pH 6.5 (5.0-9.0) Urine Specific [place] 1.025 (1.001-1.035) Urine Protein Trace (Negative) Urine Ketones Negative (Negative) Urine Blood Negative /uL (Negative) Urine Nitrite Negative (Negative) Urine Bilirubin Negative (Negative) Urine Urobilinogen Normal mg/dL (Negative) Urine Leukocyte Esterase Negative /uL (Negative) Urine RBC 3 /hpf (0 - 3) Urine Microscopic WBC < 1 /HPF (0-3) Urine Squamous Epithelial Cells Few /hpf (<5) Urine Bacteria Few /hpf (None Seen) Urine Glucose Normal mg/dL (Normal) Test 03/05/25 20:11 03/05/25 20:04 03/05/25 18:25 03/05/25 16:20 Troponin I High Sensitivity 942 ng/L (</=54) Influenza Type A Antigen Negative (Negative) Influenza Type B Antigen Negative (Negative) SARS-CoV-2 Antigen (Rapid) Negative (NEGATIVE) Direct Bilirubin < 0.1 mg/dL (<0.3) Thyroid Stimulating Hormone (TSH) 1.34 uIU/mL (0.55-4.78) Prothrombin Time 10.6 sec (9.3-11.8) Prothrombin Time INR 1.00 (0.9-1.15) D-Dimer, Quantitative 0.27 mg/L FEU (0.0-0.49) Hemoglobin A1c 5.8 % A1C (<5.7) Lactic Acid Level 1.1 mmol/L (0.4-2.0) Other Laboratory Tests 03/08/25 04:42 03/06/25 08:14 Brief Hx & Hospital Course: 59-year-old male came in for chest pain found to have troponin 1016 underwent emergency left heart catheterization by Dr. Aditya Troy with stenting of LAD which had 99.9 percent narrowing with a successful evangelical of the blood flow patient was recently treated for community-acquired pneumonia with the IV antibiotics [place] and discharged. Placed on doxycycline IV here patient was counseled about quitting smoking history of diabetes BPH and chronic back pain insomnia iron-deficiency anemia and hypertension. Patient is symptom-free with a stable vital signs discharged home Medications transmitted to [facility] He will follow up with the Cardiology Dr. Aditya Troy. Consults/Reason for consult Cardiology Dr. Aditya Troy Operations or Procedures Left heart catheterization Condition at Discharge: Fair Final Diagnosis/Problems List Non ST-elevation [place] troponin 1016: Treatment per ACS protocol cardiology consult for Dr. Troy, emergency left heart catheterization by Dr. Aditya Troy with a stenting of 99.9 % narrowing of LAD Acute COPD exacerbation Recent community-acquired pneumonia treated with the IV antibiotics at [facility] and now : Doxycycline Exertional chest pain Sinus tachycardia Acute on chronic hypoxic respiratory failure Chronic current smoker: Counseling Type 2 diabetes Generalized anxiety disorder BPH Chronic back pain Insomnia Iron-deficiency anemia Hypertension Discharge Disposition: Home Discharge Instruct/Medications Diet: Cardiac 2g Na,low cholest Activity: Light activity Follow Up/Referral: Resume all previous home medications Follow up with the primary Dr in one week Follow up with the Cardiology Dr. Aditya Troy in one week Medications: Aspirin Plavix Lipitor Metoprolol tartrate Doxycycline [facility] Scheduled Aspirin (Aspir-Low), 81 MG PO DAILY, (Reported) Aspirin (Aspirin), 81 MG PO DAILY Atorvastatin Calcium (Lipitor), 40 MG PO DAILY, (Reported) Atorvastatin Calcium (Lipitor), 1 TAB PO QPM Cholecalciferol (Vitamin D3), 1 TAB PO DAILY, (Reported) Clopidogrel Bisulfate (Plavix), 1 TAB PO DAILY Doxycycline (Monohydrate) (Doxycycline), 100 MG PO BID Levofloxacin (Levaquin), 500 MG PO DAILY Levofloxacin Hemihydrate (Levofloxacin), 750 MG PO DAILY, (Reported) Metoprolol Tartrate (Lopressor Tablet), 1 TAB PO BID Pantoprazole Sodium Sesquihydr (Protonix), 40 MG PO DAILY, (Reported) Sucralfate (Sucralfate), 1 GM PO Q6HR, (Reported) Scheduled PRN Methocarbamol (Methocarbamol), 750 MG PO Q6HP PRN for FOR MUSCLE SPASM, (Reported) Miscellaneous Medications Ferrous Sulfate (Ferosul), 325 MG PO, (Reported) Oyoofmnyljb-[id number]-Dbxqd (Trelegy Ellipta 200-62.5-25 Mcg/INH), 1 AER IN, (Reported) 39 (Time taken for discharge summary 39 minutes) Discharge Statement: "Patient was advised to return to the ER or call 911 if any headaches, dizziness, shortness of breath, chest pain, abdominal pain, bleeding, fevers, or worsening of medical condition. Patient was counseled about treatment plan, medications, possible side effects, patientverbalized understanding. All questions were answered to the best of my ability. This discharge took greater then 30 minutes in planning, reviewing documentation, counseling the patient, and discussing with other team members." ASSESSMENT ASSESSMENT Hospital Course Improved Assessment Non ST-elevation MT troponin 1016: Treatment per ACS protocol cardiology consult for Dr. rToy, emergency left heart catheterization by Dr. Aditya Troy with a stenting of 99.9 % narrowing of LAD Acute COPD exacerbation Recent community-acquired pneumonia treated with the IV antibiotics at [facility] and now : Doxycycline Exertional chest pain Sinus tachycardia Acute on chronic hypoxic respiratory failure Chronic current smoker: Counseling Type 2 diabetes Generalized anxiety disorder BPH Chronic back pain Insomnia Iron-deficiency anemia Hypertension Date of Service: Mar 09, 2025 Billing Provider: DEX GRIFFITH MD Common Visit Codes: [id number] DISCH DAY >30min DEX GRIFFITH MD Mar 09, 2025 08:47
[2025-03-09 09:00] VITALS: BP 121/80; PULSE 78; RESP 18; TEMP 97.9; O2SAT 94
[2025-03-09 10:00] VITALS: O2SAT 95
[2025-03-09 11:51] VITALS: BP 121/80; PULSE 78; RESP 18; TEMP 97.9; O2SAT 94
--- NOTE | 2025-03-09 21:26 | DVHPN2 ---
Progress Note - Dictate Date Seen: Mar 09, 2025 Medical Necessity Reason Pt with a Central, PICC or Fol: No Subjective Patient was seen and evaluated in follow up. Patient has no new complaints at this time. Patient denies any cardiac symptoms. Patient is cardiac stable for discharge. Telemetry reviewed. vital signs Vital Sign Date Time Temp Pulse Resp B/P (MAP) Pulse Ox O2 Delivery O2 Flow Rate FiO2 03/09/25 11:51 97.9 78 18 94 03/09/25 10:04 121/80 03/09/25 10:00 Nasal Cannula* 2 28 Total Intake and Output 03/08/25 03/08/25 03/09/25 15:00 23:00 07:00 Intake Total 150 ml 350 ml 600 ml Output Total 900 ml Balance 150 ml -550 ml 600 ml medications Current Medications Medications Dose Ordered Sig/Rochelle Route Start Time Stop Time Status Last Admin Dose Admin Ondansetron HCl 4 mg Q4HP PRN IV 03/05/25 19:15 Docusate Sodium 100 mg BIDPRN PRN PO 03/05/25 19:15 Morphine Sulfate 2 mg Q4HPRN PRN IV 03/05/25 20:45 Nitroglycerin 0.4 mg Q5MINP PRN SL 03/05/25 19:15 Morphine Sulfate 2 mg Q30M PRN IV 03/05/25 20:45 Levalbuterol HCl 0.625 mg Q6HPRN PRN NEB 03/05/25 19:45 03/08/25 15:34 0.625 MG Ipratropium [place] 0.5 mg Q6HPRN PRN NEB 03/05/25 19:45 03/08/25 15:34 0.5 MG Methylprednisolone Sodium Succinate 40 mg BID IV 03/05/25 22:00 03/09/25 10:02 40 MG Nicotine 1 patch DAILY TD 03/06/25 10:00 03/09/25 10:03 1 PATCH Pantoprazole Sodium 40 mg DAILY IV 03/06/25 10:00 03/09/25 10:02 40 MG Sucralfate 1 gm BID@0600,2200 GT 03/05/25 22:00 03/09/25 05:06 1 GM Ceftriaxone Sodium 50 ml @ 100 mls/hr DAILY@09 IV 03/06/25 09:00 03/09/25 10:02 100 MLS/HR Doxycycline Hyclate 100 ml @ 50 mls/hr Q12H IV 03/05/25 19:45 03/09/25 06:32 50 MLS/HR Atorvastatin Calcium 40 mg HS PO 03/06/25 22:00 03/08/25 21:39 40 MG Aspirin 81 mg DAILY PO 03/06/25 10:00 03/09/25 10:04 81 MG Trazodone HCl 100 mg HS PO 03/05/25 22:00 03/08/25 21:38 100 MG Tamsulosin HCl 0.4 mg QPM PO 03/06/25 18:00 03/08/25 17:46 0.4 MG Cyclobenzaprine HCl 5 mg TID PO 03/05/25 22:00 03/09/25 05:06 5 MG Sertraline HCl 50 mg DAILY PO 03/06/25 10:00 03/09/25 10:03 50 MG Enoxaparin Sodium 70 mg Q12HR SC 03/08/25 10:00 03/09/25 10:02 70 MG Clopidogrel Bisulfate 75 mg DAILY PO 03/08/25 10:00 03/09/25 10:04 75 MG Metoprolol Tartrate 25 mg BID PO 03/07/25 22:00 03/09/25 10:04 25 MG objective GENERAL: Alert and oriented x 3. No acute distress. EYES: PERRL, EOMI. Anicteric. HENT: Moist mucous membranes. LUNGS: Decreased breath sounds. CARDIOVASCULAR: Regular rate and rhythm. ABDOMEN: Soft, epigastric tenderness. EXTREMITIES: No edema. NEUROLOGIC: No focal neurological deficits. SKIN: Warm, dry. laboratory and microbiology Laboratory Tests 03/08/25 04:42 03/06/25 08:14 Test 03/08/25 04:42 Range/Units Serum Glucose 118 H 74-106 mg/dL Problem List Acute chest pain secondary to NSTEMI likely type 1. Hypertension. Likely acute COPD exacerbation. Community-acquired pneumonia, Gram-positive and negative. Nicotine dependence. Diabetes mellitus type 2-controlled. Hypokalemia. Assessment/Plan Continued all current supportive medical care. Nitro SL. Aspirin, Plavix, Metoprolol. IV antibiotics as ordered. DVT and GI prophylactics. Morphine for pain management. Additional plan as per the hospital course. Plan discussed with: Patient TAYLER DE PAZ MD Mar 09, 2025 13:26
--- NOTE | 2025-03-13 06:53 | ECG ---
[facility] Test Date: 2025-03-05 Test Time: 16:02:29 Pat Name: NAOMIE HUTSON Department: Room: 0216T B Gender: M Craft Coordinator: LORETTA : 1965 Requested By: CANDELARIO MENDOZA Order Number: [id number] Reading MD: Anshul Murphy Measurements Intervals [place] Rate: 100 P: 79 GA: 148 QRS: -28 QRSD: 97 T: 75 QT: 340 QTc: 439 Interpretive Statements Sinus tachycardia Atrial premature complex Borderline left axis deviation Borderline ST depression, anterolateral leads Electronically Signed On 03-13-2025 17:35:19 PST by Anshul Murphy Please click the below link to view image of tracing.
== END 2025-03-09 12:34 | disposition home or self-care (01) | DRG 174 ==
LOC: EDBD 15:26 → ER 15:26 → OVERFLOW 19:02 → TELE-CENTR 21:23
PROVIDERS: ADMIT Family Medicine; ATTEND Family Medicine
PROC: 027034Z Dilation of Coronary Artery, One Artery with Drug-eluting Intraluminal Device, Percutaneous Approach (ICD-10-PCS; principal; 2025-03-07)
PROC: 02C03ZZ Extirpation of Matter from Coronary Artery, One Artery, Percutaneous Approach (ICD-10-PCS; 2025-03-07)
PROC: 03HY32Z Insertion of Monitoring Device into Upper Artery, Percutaneous Approach (ICD-10-PCS; 2025-03-07)
PROC: B240ZZ3 Ultrasonography of Single Coronary Artery, Intravascular (ICD-10-PCS; 2025-03-07)
PROC: 4A023N7 Measurement of Cardiac Sampling and Pressure, Left Heart, Percutaneous Approach (ICD-10-PCS; 2025-03-07)
PROC: B211YZZ Fluoroscopy of Multiple Coronary Arteries using Other Contrast (ICD-10-PCS; 2025-03-07)
PROC: B215YZZ Fluoroscopy of Left Heart using Other Contrast (ICD-10-PCS; 2025-03-07)
DX: I21.4 Non-ST elevation (NSTEMI) myocardial infarction (principal); J96.21 Acute and chronic respiratory failure with hypoxia; J15.69 Pneumonia due to other Gram-negative bacteria; J15.9 Unspecified bacterial pneumonia; J44.0 Chronic obstructive pulmonary disease with (acute) lower respiratory infection; D50.9 Iron deficiency anemia, unspecified; E11.9 Type 2 diabetes mellitus without complications; I10 Essential (primary) hypertension; K27.9 Peptic ulcer, site unspecified, unspecified as acute or chronic, without hemorrhage or perforation; Z20.822 Contact with and (suspected) exposure to COVID-19; J44.1 Chronic obstructive pulmonary disease with (acute) exacerbation; E87.6 Hypokalemia; G89.29 Other chronic pain; G47.00 Insomnia, unspecified; F41.1 Generalized anxiety disorder; N40.0 Benign prostatic hyperplasia without lower urinary tract symptoms; K21.9 Gastro-esophageal reflux disease without esophagitis; F17.210 Nicotine dependence, cigarettes, uncomplicated; E78.5 Hyperlipidemia, unspecified; Z71.6 Tobacco abuse counseling; Z82.5 Family history of asthma and other chronic lower respiratory diseases; Z79.82 Long term (current) use of aspirin
CPT/HCPCS: 36415; 71045; 72040; 80048; 80053; 80061; 80076; 81001; 82962; 83036; 83605; 84443; 84484; 85025; 85379; 85610; 86850; 86900; 86901; 87040; 87081; 87426; 87804; 92941; 92973; 92978; 93005; 93306; 93458; 93970; 94640; 96372; 97163; 99152; 99291; G0378; J2250; J2470; J3480; Q9967